=== PATIENT | female | born 2005 | race Two or more races ===

== ENCOUNTER 2025-04-07 14:29 | Emergency (ER) | payer OTHER, SELFPAY ==
[2025-04-07 14:48] VITALS: BP 114/78; PULSE 73; RESP 16; TEMP 36.8; O2SAT 100
--- NOTE | 2025-04-07 14:55 | ED.GENADULT ---
HPI - General Adult General Chief complaint: Headache Stated complaint: headaches/fatigue Time Seen by Provider: 04/07/25 14:31 Source: patient Mode of arrival: ambulatory Limitations: no limitations History of Present Illness HPI narrative: 19-year-old female presents to [facility] with complaints of 2-3 day history of painful skin, headache, lower abdominal cramping, fatigue, body aches and chills. Patient reports that she had an 1 month ago but was feeling well afterwards and Reports that symptoms started 3 days ago. Patient reports that she has been sexually active unprotected since then. Patient is a nonsmoker. Patient denies sick contacts. Patient denies fever, cough, shortness of breath, chest pains, nausea, vomiting or diarrhea. Onset (ago): day(s) (2-3) Relieving factors: none Exacerbating factors: none Associated symptoms: headaches Related Data Home Medications ?Medication ?Instructions ?Recorded ?Confirmed ?Last Taken ?Type No Home Medications 04/07/25 04/07/25 Unknown History Allergies Allergy/AdvReac Type Severity Reaction Status Date / Time No Known Allergies Allergy Verified 04/07/25 14:47 Review of Systems Constitutional: Constitutional: Reports chills, Reports fatigue, Denies fever(s) and Denies weakness ENT: Denies dysphagia, Denies vertigo, Reports dizziness, Denies epistaxis, Denies nasal congestion and Denies sore throat Cardiovascular: Cardiovascular: Denies chest pain Respiratory: Respiratory: Denies cough, Denies dyspnea and Denies wheezing Gastrointestinal: Gastrointestinal: Reports abdominal pain, Denies bloating, Denies diarrhea, Denies nausea and Denies vomiting Genitourinary: Genitourinary: Denies abnormal vaginal bleeding, Denies nocturia, Denies dysuria, Denies urinary incontinence and Denies vaginal discharge Musculoskeletal: Musculoskeletal: Denies back pain Integumentary/Breasts: Skin/Breast: Denies rash Neurologic: Denies confusion, Denies vertigo, Reports dizziness, Denies syncope, Reports headache(s) and Denies focal weakness Allergic/Immunologic: Allergic/Immunologic: Denies lip swelling, Denies throat swelling and Denies tongue swelling PMFSH Comments At time of signature, I agree with nursing past medical, surgical, social and family history. There is no relevant family history pertinent to the presenting complaint. Exam Const: General: healthy appearing and no acute distress Nutritional Appearance: well nourished Orientation/consciousness: patient oriented x3 Limitations: no limitations HENMT: Head: normal to inspection Ears: external ears normal and TM's normal bilaterally Mouth: Yes Normal oral and palatal mucosa present, Yes lip normal and Yes moist mucous membranes Teeth and gingiva: dentition normal Throat: posterior oropharynx normal and uvula midline Eyes: Conjunctivae: conjunctivae normal Neck: Neck: normal visual inspection Resp: Effort & Inspection: normal respiratory effort and not labored Auscultation: clear to auscultation bilaterally, no crackles, no rales, no rhonchi and no wheezes Cardio: Rate: regular rate Rhythm: regular rhythm Heart sounds: no murmurs GI: Inspection: non-distended GI Palp: Yes Soft to palpation, No Tenderness to palpation present (GI), No Guarding due to palpation present (GI) and No Rigid due to palpation : General: Yes bladder normal to palpation and Yes no CVA tenderness Back/Spine/Pelvis: Back: no CVA tenderness Skin: General skin exam: normal color Rashes: no rashes Wounds: no wounds Neuro: General: patient oriented x3 and moves all extremities Speech: normal speech Gait exam (Neuro): Normal gait present Extrem: General: normal to inspection Psych: Affect: normal affect Attitude: cooperative Course Course Level of Care: Express Care Visit Vital Signs Vital signs: Vital Signs Temperature 36.8 C 04/07/25 14:48 Pulse Rate 73 04/07/25 14:48 Respiratory Rate 16 04/07/25 14:48 Blood Pressure 114/78 04/07/25 14:48 Pulse Oximetry 100 04/07/25 14:48 Oxygen Delivery Room Air 04/07/25 14:48 Temperature 36.8 C 04/07/25 14:48 Pulse Rate 73 04/07/25 14:48 Respiratory Rate 16 04/07/25 14:48 Blood Pressure 114/78 04/07/25 14:48 Pulse Oximetry 100 04/07/25 14:48 Oxygen Delivery Room Air 04/07/25 14:48 Transfer Transfered to: [facility] Transfer rationale: abdominal pain, cramping, recent miscarrige 4 weeks ago Accepting physician: Dr South Transfer comments: Transfer form completed and signed. Patient agrees to go directly to [facility] for further evaluation Medical Decision Making MDM Narrative Medical decision making narrative: due to miscarriage 4 weeks ago with no follow-up and current symptoms of abdominal pain, cramping, patient will be transferred to [facility] for further evaluation of labs and imaging. transfer form completed and signed. Called [facility] and report was given to Dr. South. patient does have positive test here. Could likely be from recent miscarriage, but patient does admit to unprotected intercourse since miscarriage Differential Diagnosis Differential Diagnosis: infection post miscarriage, vial illness, bacterial illness Vital Signs Vital Signs: Vital Signs Temperature 36.8 C 04/07/25 14:48 Pulse Rate 73 04/07/25 14:48 Respiratory Rate 16 04/07/25 14:48 Blood Pressure 114/78 04/07/25 14:48 Pulse Oximetry 100 04/07/25 14:48 Oxygen Delivery Room Air 04/07/25 14:48 Temperature 36.8 C 04/07/25 14:48 Pulse Rate 73 04/07/25 14:48 Respiratory Rate 16 04/07/25 14:48 Blood Pressure 114/78 04/07/25 14:48 Pulse Oximetry 100 04/07/25 14:48 Oxygen Delivery Room Air 04/07/25 14:48 Lab Data Labs: Lab Results 04/07/25 04/07/25 Range/Units 15:25 15:29 POC Urine Color Yellow POC Urine Clarity Clear POC Urine pH 6.0 POC Ur Specif [place] 1.030 POC Urine Protein Negative (Negative) POC Ur Glucose (UA) Negative (Negative) POC Urine Ketones Negative (Negative) POC Urine Blood Negative (Negative) POC Urine Nitrite Negative (Negative) POC Urine Bilirubin Negative (Negative) POC Urine Urobilinogen 0.2 POC U Leukocyte Esteras Negative (Negative) POC Urine HCG, Qual Positive (Negative) POC Influenza A Ag Negative (Negative) POC Influenza B Ag Negative (Negative) POC SARS CoV-2 Ag Negative (Negative) POC Grp A Strep Screen Negative (Negative) Critical Care Time Critical Care Time Critical Care Time: No Discharge Plan Discharge Clinical Impression: Abdominal pain Qualifiers: Abdominal location: generalized Qualified Code(s): R10.84 - Generalized abdominal pain Patient Disposition: Acute Care Hospital Condition: Stable Additional Instructions: Proceed to [facility] for further evaluation and higher level of care Patient Language: Spanish Prescriptions: No Action No Home Medications Follow-up/Referrals: Patrizia,Sabina Dixon NP [Primary Care Provider] - Time of Disposition: 15:49
[2025-04-07 15:27] LABS: BEDSIDEPREGUCG Positive (Negative); EDSTREPNEGPOS1 Negative (Negative)
[2025-04-07 15:28] LABS: EDUAAPPEAR Clear; EDUABILI Negative (Negative); EDUABLOOD Negative (Negative); EDUACOLOR1 Yellow; EDUAGLUCOSE Negative (Negative); EDUAKETONE Negative (Negative); EDUALEUKO Negative (Negative); EDUANITRATE Negative (Negative); EDUAPROTEIN Negative (Negative); EDUAUROBILI 0.2
[2025-04-07 15:31] LABS: EDCOVIDSCREEN Negative (Negative); EDINFLUASCREEN Negative (Negative); EDINFLUBSCREEN Negative (Negative)
== END 2025-04-07 15:55 | disposition short-term general hospital (02) ==
PROVIDERS: Emergency Provider Nurse Practitioner Family; PCP Nurse Practitioner
DX: R10.84 Generalized abdominal pain (principal); Z20.822 Contact with and (suspected) exposure to COVID-19
CPT/HCPCS: 81003; 81025; 87426; 87804; 87880; 99213; G0463

== ENCOUNTER 2025-04-08 21:37 | Emergency (ER) | payer OTHER, SELFPAY ==
--- NOTE | ~2025-04-08 | US_ITS ---
Pelvic ultrasound. Clinical History: First trimester , pain, evaluate for ectopic Technique: Realtime transabdominal and transvaginal scanning of the pelvis was performed. Color flow Doppler and Doppler spectral analysis were performed. Findings: The uterus is retroverted.. The endometrial stripe has a thickness of 6 mm. No intrauterin e gestational sac is identified. The right ovary is not visualized. No significant right ovarian or adnexal mass is seen. The left ovary measures 2.9 x 2.2 x 1.9 cm. No significant left ovarian or adnexal mass is seen. There is no evidence of free fluid in the cul de sac. Impression: Positive test without intrauterine gestation. Differential diagnosis includes early normal , spontaneous , or nonvisualized ectopic . Correlate clinically. Continued follow-up with serial beta hCG, and repeat ultrasound as warranted, is advised. Reviewed, dictated and finalized at [facility]. Impression: Positive test without intrauterine gestation. Differential diagnosis includes early normal , spontaneous , or nonvisualized ectopic . Correlate clinically. Continued follow-up with serial beta hCG, and repeat ultrasound as warranted, is advised.
--- OUTSIDE RECORDS SUMMARY | 2025-04-08 21:41 | XMS_ITS | Clinical Summary ---
Author Organization [place] [id number] Address [address] [place] [address] Care Team Providers Care Parachute Rigger Name Role Phone Unknown, Notinfile Primary Care Provider Unavail able Allergies No known active allergies Medications No known medications Encounters Date Type Department Care Team Description 04/07/2025 Patient Self-Triage [facility] HealthCare/ Physicians [address] [place] [id number] Mychart, Generic Provider 04/07/2025 Patient Self-Triage [facility] HealthCare/ Physicians [address] [place] [phone] Mychart, Generic Provider 02/28/2025 6:36 PM CDT - 02/28/2025 8:10 PM CDT Emergency [facility] OB Emergency Department [facility] [place] [address] Crow Espinoza, Threatened in first trimester (Primary Dx); Chlamydia infection affecting in first trimester, antepartum Discharge Disposition: Discharge to home or self care from Last 3 Months Social History Tobacco Use Types Packs/Day Years Used Date Smoking Tobacco: Never Smokeless Tobacco: Never Tobacco Cessation:Counseling Given: Not Answered Social Connection and Isolat ion Panel [NHANES] Answer Date Recorded In a typical week, how many times do you talk on the phone with family, friends, or neighbors? More than three times a week 02/28/2025 How often do you get togethe r with friends or relatives? More than three times a week 02/28/2025 How often do you attend [facility] or jew services? More than 4 times per year 02/28/2025 Do you belong to any clubs o r organizations such as spiritism groups, unions, fraternal or athletic groups, or school groups? Yes 02/28/2025 How often do you attend meet ings of the clubs or organizations you belong to? More than 4 times per year 02/28/2025 Are you , , di vorced, , never , or living with a partner? Never 02/28/2025 AUDIT-C Answer Date Recorded Q1: How often do you have a drink containing alcohol? Never 02/28/2025 Q2: How many drinks containi ng alcohol do you have on a typical day when you are drinking? Patient does not drink Q3: How often do you have si x or more drinks on one occasion? Never 02/28/2025 Overall Financial Resource Strain (CARDIA) Answe r Date Recorded How hard is it for you to pa y for the very basics like food, housing, medical care, and heating? Not hard at all 02/28/2025 PHQ-2 Answer Date Recorded PHQ-2 Total Score (If total score is 3 or more points, staff should administer the PHQ-9) 0 02/28/2025 [facility] of Occupat ional Health - Occupational Stress Questionnaire Answer Date Recorded Do you feel stress - tense, restless, nervous, or anxious, or unable to sleep at night because your mind is troubled all the time - these days? To some extent 02/28/2025 Exercise Vital Sign Answer Date Recorde d On average, how many days pe r week do you engage in moderate to strenuous exercise (like a brisk walk)? 0 days 02/28/2025 On average, how many minutes do you engage in exercise at this level? 0 min 02/28/2025 Hunger Vital Sign Answer Date Recorded Within the past 12 months, y ou worried that your food would run out before you got the money to buy more. Never true 02/29/20 25 Within the past 12 months, t he food you bought just didn't last and you didn't have money to get more. Never true 02/28/2025 PRAPARE - Transportation Answer Date Re corded In the past 12 months, has l ack of transportation kept you from medical appointments or from getting medications? No 04/2 01/2025 In the past 12 months, has l ack of transportation kept you from meetings, work, or from getting things needed for daily living? No 02/28/2025 PHQ-9 Answer Date Recorded PHQ-9 Total Score 0 02/28/2025 Housing Stability Vital Sign Answer Ricki e Recorded In the last 12 months, was t here a time when you were not able to pay the mortgage or rent on time? No 02/28/2025 Number of Times Moved in the Last Year Not on fi le 02/28/2025 At any time in the past 12 m [facility], were you homeless or living in a long term (including now)? No 02/28/2025 Personal Safety Answer Date Recorded Have you ever been in or are you currently in a harmful physical or emotional relationship or is someone making you feel afraid or unsafe? 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 Gender Identity Not on file Sexual Orientation Not on file Obstetrics History Para Term AB IAB SAB Ectopic Multiple Livin g Live Births 1 Date Outcome GA Total Labor Labor/2nd/3rd Weight Sex Type Anes PTL Debo A1 A5 Name Clin Current Summary Episode Dates Number of Fetuses Estimated Date of Delivery 02/28/2025 - Present (04/08/2025) 10/29/2025 (set by Della Queen, ROBIN on 02/28/2025 based on Last Menstrual Period on 01/22/2025 (Approximate)) Dating Summary Based On JOSE CARLOS GA Diff Last Menstrual Period on 01/22/2025 (Approximate ) 10/29/2025 Working Vitals Date GA Fund Present FHR Mvmt BP Weight Edema Alb Glu Ket Dil/ Eff/Sta 5w2d Inpatient data not displayed here. See encounter summary. Last Filed Vital Signs Vital Sign Reading Time Taken Comments Blood Pressure 142/80 02/28/2025 6:07 PM CDT Pulse 116 02/28/2025 6:07 PM CDT Temperature 36.7 C (98.1 F) 02/28/2025 6:07 PM CDT Respiratory Rate 17 02/28/2025 6:07 PM CDT Oxygen Saturation 98% 02/28/2025 6:07 PM CDT Inhaled Oxygen Concentration - - Weight 58.6 kg (129 lb 3 oz) 02/28/2025 6:07 PM CDT Height 157.5 cm (5' 2) 03/05/2019 10:33 PM CDT Body Mass Index - - Plan of Treatment Health Maintenance Due Date Last Done Comments Hepatitis C Screening 2004 Meningococcal B Vaccine (1 o f 2 - Standard) 2020 Regular Well Visit/Exam 18-64 2022 Covid-19 Vaccine (3 - 2023-2 5 season) 2024 11/11/2021, 09/04/2021 Influenza Vaccine (Season Ended) 2025 09/01/20 05 Depression Screening 02/28/2026 02/28/2025, 02/29/20 25 DTaP/Tdap/Td Vaccine (7 - Td or Tdap) 05/20/2027 05/20/2017, 06/13/2009, 04/16/2006, Additional history exists Hepatitis B Screening Completed 04/16/2006 , 03/31/2005, 2004, Additional history exists Pneumococcal vaccine <65 Completed 009, 04/16/2006, 03/31/2005, Additional history exists Varicella Vaccines Completed 12/27/2008, 09/01/2005 HPV Vaccines Completed 07/24/2019, 05/20/2017 Meningococcal Vaccine Completed 07/22/2022, 017 Procedures Procedure Name Priority Date/Time Associated Diagnosis Comments ANTIBODY SCREEN Timed 02/28/2025 7:26 PM CDT ABO/RH Timed 02/28/2025 7:26 PM CDT TYPE AND SCREEN Timed 02/28/2025 7:26 PM CDT VAGINITIS PANEL STAT 02/28/2025 7:26 PM CDT N. GONORRHOEAE/C. TRACHOMATIS AMPLIFICATION STAT 02/28/2025 7:26 PM CDT POCT HCG, URINE Routine 02/28/2025 6:24 PM CDT EGFR STAT 02/28/2025 6:22 PM CDT HCG, BLOOD, QUANTITATIVE STAT 02/28/2025 6:22 PM CDT COMPREHENSIVE METABOLIC PANEL STAT 02/28/2025 6:22 PM CDT DIFFERENTIAL AUTO STAT 02/28/2025 6:1 3 PM CDT CBC WITH AUTO DIFFERENTIAL STAT 02/28/2025 6:13 PM CDT from Last 3 Months Results * (ABNORMAL) N. gonorrhoeae/C. trachomatis Amplification Endocervical (02/28/2025 7:26 PM CDT) [facility] C. trachomatis Detected(A) Not Detected Comment:Testing performed by : [facility], [address] [place] [address]., [id number] N. gonorrhoeae Not Detected Not Detected ANYA ULRICH Comment: Interpretive Data This assay detects Chlamydia trachomatis and Neisseria gonorrhoeae by nucleic acid amplification testing (NAAT). This assay has been cleared by the [place] Food and Drug administration. The performance characteristics of this test have been verified by the [facility]. The performance characteristics of this test have not been evaluated in individuals less than 14 years of age. Current Interpretive Data last revised 2023. Testing performed by: [facility], [address] [place] [address]., [id number] Endocervical (None) 02/29/20 7:26 PM CDT 02/28/2025 7:38 PM CDT us Jimmy Mason MD LAB MICROBIOLOGY - GENERAL ORDERABLES Final Result ANYA [address] [facility] Department [place] [address] * (ABNORMAL) Vaginitis panel Vaginal (02/28/2025 7:26 PM CDT) Bacterial Vaginosis Detected(A) Not Detected Comment: The BV organism targets of this test can be commensal in women; results should be considered in conjunction with clinical presentation to determine the disease status. Testing performed by: [address] [address] Wen group Not Detected Not Detected ANYA Comment:Testing performed by : [address] [address] Wen glabrata/ krusei Not Detected Not Detected ANYA Comment:Testing performed by : [address] [address] Trichomonas DNA Not Detected Not Detected [facility] Comment:Testing performed by : [address] [address] Vaginal 02/28/2025 7:26 PM CDT 02/28/2025 9:45 PM CDT Narrative ANYA - 02/28/2025 10:45 PM CDT The [employer] Xpert Xpress MVP test detects DNA targets from anaerobic bacteria associated with bacterial vaginosis, Wen species associated with vulvovaginal candidiasis, and Trichomonas vaginalis by nucleic acid amplification testing (NAAT). Results should be interpreted in conjunction with other clinical data. This test cannot be used to assess therapeutic success or failure because target nucleic acids may persist following antimicrobial therapy. This test has been cleared by the [place] Food and Drug Administration to aid in the diagnosis of vaginal infections in symptomatic women ages 14 and older. The performance characteristics of this test have been verified by the [facility]. us Jimmy Mason MD LAB MICROBIOLOGY - GENERAL ORDERABLES Final Result [facility] [address] [facility] Department [place] [address] * ABO/Rh (02/28/2025 7:26 PM CDT) ABO/Rh O Positive Comment:Testing performed by : [address] [address] Blood 02/28/2025 7:26 PM CDT 02/28/2025 7:38 PM CDT Narrative [facility] 02/28/2025 8:13 PM CDT Has the patient had Daratumumab or Isatuximab in the past 6 months?->Unknown Jimmy Mason MD LAB BLOOD BANK TEST ORDERAB LES Final Result Performing Organization Address City/[facility]/ZIP Co de Phone Number [address] [place] [address] * Antibody screen (02/28/2025 7:26 PM CDT) [facility] Beatris, indirect, Gel Interpretation Negative ABSC Comment:Testing performed by : [facility], [address] [place] [address]., [address] Blood 02/28/2025 7:26 PM CDT 02/28/2025 7:38 PM CDT Narrative [facility] 02/28/2025 8:13 PM CDT Has the patient had Daratumumab or Isatuximab in the past 6 months?->Unknown Result [facility] Jimmy Mason MD LAB BLOOD BANK TEST ORDERAB LES Final Result Performing Organization Address [facility] Co de Phone Number [address] [place] [address] * (ABNORMAL) POCT hCG, urine (02/28/2025 6:24 PM CDT) [facility] HCG, ur, POC Positive(A) Negative Lot Number [id number] QC Backgroud Clear Acceptable QC Control Line Acceptable Urine 02/28/2025 6:24 PM CDT Dari LUCIANO POINT OF CARE TEST ORD ERABLES Final Result * eGFR (02/28/2025 6:22 PM CDT) [facility] eGFR >90 >=60 mL/min/1. 73 m2 Comment: Interpretive Data Reference Interval Normal >/= 90 mL/min/1.73m2 Mildly decreased* 60 - 89 mL/min/1.73m2 Mildly to moderately decreased 45 - 59 mL/min/1.73m2 Moderately to severely decreased 30 - 44 mL/min/1.73m2 Severely decreased 15 - 29 mL/min/1.73m2 Kidney Failure < 15 mL/min/1.73m2 *Relative to young adult level Estimated glomerular filtration rate is determined by the 2020 CKD-EPI equation recommended by the National Kidney Foundation (A Unifying Approach to GFR Estimation: Recommendations of the NKF-ASK Task Force on Reassessing the Inclusion of Race in Diagnosing Kidney Disease, JASN 2020). The CKD-EPI equation should not be used for patients with unstable renal function and has not been validated in children and those over 70. Current interpretive data was last reviewed 2021. Testing performed by: [address] [address] Blood 02/28/2025 6:22 PM CDT 02/28/2025 6:30 PM CDT us Rod Trejo MD LAB BLOOD ORDERABLES Fi nal Result [facility] [address] [facility] Department [place] [address] * (ABNORMAL) hCG, blood, quantitative (02/28/2025 6:22 PM CDT) hCG, quant 352.1(H) 0.0 - 5.0 IUnits/L Comment: Interpretive Data Male: < 5 IU/L Non- premenopausal Female: <5 IU/L The Sil hCG Beta Quant assay procedure was used. Results from different manufacturers or methods may not be comparable. Serial testing should be performed using the same method. Interpretive Data was last revised on 2023 Testing performed by: [address] [address] Blood 02/28/2025 6:22 PM CDT 02/28/2025 6:30 PM CDT Crow Oscar Schifano DO LAB BLOOD ORDERABLES Ed ited Result - Final ANY[facility] [address] [facility] Department [place] [address] * (ABNORMAL) Comprehensive metabolic panel (02/28/2025 6:22 PM CDT) Sodium 137 135 - 145 mmol/L Comment:Testing performed by : [address] [address] Potassium, pl 3.7 3.3 - 4.9 mmol/L ANYA Comment:Testing performed by : [address], [place]., [address] Chloride 103 97 - 110 mmol/L ANYA Comment:Testing performed by : [address], [place]., [address] CO2 25 22 - 32 mmol/L ANYA Comment:Testing performed by : [address] [address] Anion gap 9 2 - 15 mmol/L ANYA Comment:Testing performed by : [address] [address] BUN 15 6 - 25 mg/dL ANYA Comment:Testing performed by : [address] [address] Creatinine 0.50(L) 0.60 - 1.10 mg/dL ANYA Comment:Testing performed by : [address] [address] Glucose 88 70 - 199 mg/dL ANYA Comment: Interpretive Data Fasting glucose >/= 126 mg/dl is diagnostic for diabetes. Fasting is defined as no caloric intake for at least 8 hours. Fasting glucose between 100 mg/dl to 125 mg/dl is diagnostic of prediabetes. In a patient with classic symptoms of hyperglycemia or hyperglycemic crisis, a random glucose >/= 200 mg/dl is diagnostic for diabetes. In the absence of unequivocal hyperglycemia, results should be confirmed by repeat testing. The classification and Diagnosis of Diabetes Diabetes Care 2021; 46: S19-S40. Current interpretive data was last revised 2022. Testing performed by: [address] [address] Calcium 9.1 8.5 - 10.3 mg/dL ANYA Comment:Testing performed by : [address] [address] Bilirubin, total 0.3 0.1 - 1.2 mg/dL ANYA Comment:Testing performed by : [address], [place]., [address] Protein, pl 7.4 6.5 - 8.5 g/dL ANYA Comment:Testing performed by : [address], [place]., [address] Albumin 4.5 3.5 - 5.0 g/dL ANYA Comment:Testing performed by : [address] [address] Alk phos 62 40 - 130 Units/L ANYA Comment:Testing performed by : [address] [address] ALT 9 7 - 45 Units/L ANYA Comment:Testing performed by : [address] [address] AST 15 10 - 45 Units/L ANYA Comment:Testing performed by : [address] [address] Blood 02/28/2025 6:22 PM CDT 02/28/2025 6:30 PM CDT us Rod Trejo MD LAB BLOOD ORDERABLES nal Result ANY[facility] [address] [facility] Department [place] [address] * (ABNORMAL) Differential, auto (02/28/2025 6:13 PM CDT) Neutrophil abs 6.84(H) 1.50 - 6.50 K/cumm Comment:Testing performed by : [address] [address] Imm gran abs 0.02 0.00 - 0.10 K/cumm ANYA Comment:Testing performed by : [address] [address] Lymphocyte abs 1.99 0.80 - 3.30 K/cumm C[facility] Comment:Testing performed by : [address] [address] Monocyte abs 0.71 0.20 - 0.80 K/cumm [facility] Comment:Testing performed by : [address], [place]., [address] Eosinophil abs 0.17 0.00 - 0.50 K/cumm [facility] Comment:Testing performed by : [address], [place]., [address] Basophil abs 0.06 0.00 - 0.10 K/cumm [facility] Comment:Testing performed by : [address] [address] Neutrophil pct 69.9 % [facility] Comment: Interpretive Data Percent cell count reference ranges are not reported, since discordance with absolute values may lead to misinterpretation of CBC data. Current Interpretive Data was last revised on 2018. Testing performed by: [address] [address] Imm gran pct 0.2 % [facility] Comment: Interpretive Data Percent cell count reference ranges are not reported, since discordance with absolute values may lead to misinterpretation of CBC data. Current Interpretive Data was last revised on 2018. Testing performed by: [address] [address] Lymphocyte pct 20.3 % [facility] Comment: Interpretive Data Percent cell count reference ranges are not reported, since discordance with absolute values may lead to misinterpretation of CBC data. Current Interpretive Data was last revised on 2018. Testing performed by: [address] [address] Monocyte pct 7.3 % [facility] Comment: Interpretive Data Percent cell count reference ranges are not reported, since discordance with absolute values may lead to misinterpretation of CBC data. Current Interpretive Data was last revised on 2018. Testing performed by: [address] [address] Eosinophil pct 1.7 % [facility] Comment: Interpretive Data Percent cell count reference ranges are not reported, since discordance with absolute values may lead to misinterpretation of CBC data. Current Interpretive Data was last revised on 2018. Testing performed by: [address] [address] Basophil pct 0.6 % ANY[facility] ULRICH Comment: Interpretive Data Percent cell count reference ranges are not reported, since discordance with absolute values may lead to misinterpretation of CBC data. Current Interpretive Data was last revised on 2018. Testing performed by: [address] [address] Blood 02/28/2025 6:13 PM CDT 02/28/2025 6:30 PM CDT us Dari LUCIANO LAB BLOOD ORDERABLES F inal Result ANYA [facility] Department [place] [address] * (ABNORMAL) CBC with auto differential (02/28/2025 6:13 PM CDT) WBC 9.79 3.80 - 9.90 K/cumm Comment:Testing performed by : [address] [address] Hgb 12.1 11.9 - 15.5 g/dL [facility]ICH Comment:Testing performed by : [address] [address] Hct 35.1(L) 35.6 - 45.5 % [facility] Comment:Testing performed by : [address] [address] Plt 249 150 - 400 K/cumm [facility] Comment:Testing performed by : [address] [address] MPV 11.0 9.1 - 12.3 fL [facility] Comment:Testing performed by : [address] [address] RBC 3.95 3.90 - 5.20 M/cumm [facility] Comment:Testing performed by : [address] [address] MCV 88.9 81.3 - 96.4 fL [facility] Comment:Testing performed by : [address] [address] MCH 30.6 27.1 - 33.3 pg [facility] ULRICH Comment:Testing performed by : [address] [address] MCHC 34.5 32.3 - 35.7 g/dL [facility] Comment:Testing performed by : [address] [address] RDW CV 11.6 11.1 - 14.9 % [facility] Comment:Testing performed by : [address] [address] RDW SD 37.4 35.7 - 48.1 fL [facility] Comment:Testing performed by : [address] [address] NRBC abs 0.00 0.00 - 0.01 K/cumm ANYA Comment:Testing performed by : [address] [address] Blood Venous blood specimen / Unknown 02/28/2025 6:13 PM CDT 02/28/2025 6:30 PM CDT Dari LUCIANO LAB BLOOD ORDERABLES F inal Result Performing Organization Address City/State/[facility] Co de Phone Number [facility] [address] [facility] Department [place] [address] from Last 3 Months Insurance Care Teams Parachute Rigger Relationship Specialty Start Date End Date Unknown, Notinfile PCP - General 02/28/25
--- OUTSIDE RECORDS SUMMARY | 2025-04-08 21:41 | XMS_ITS | Encounter Summary ---
Author Organization [facility] Healthcare Address [address] [place] [address] Care Team Providers Care Bingo Caller Name Role Phone Unknown, Notinfile Primary Care Provider Unavail able Encounter Details Date Type Department Care Team ([facility] st Contact Info) Description 04/07/2025 Patient Self-Triage [facility] [address] [place] [address] Romie, Generic Provider [address] [place], [place] [id number] Social History Tobacco Use Types Packs/Day Years Used Date Smoking Tobacco: Never Smokeless Tobacco: Never Social Connection and Isolat ion Panel [NHANES] Answer Date Recorded In a typical week, how many times do you talk on the phone with family, friends, or neighbors? More than three times a week 02/28/2025 How often do you get togethe r with friends or relatives? More than three times a week 02/28/2025 How often do you attend chur or spiritism services? More than 4 times per year 02/28/2025 Do you belong to any clubs o r organizations such as cheondoism groups, unions, fraternal or athletic groups, or [...] staff should administer the PHQ-9) 0 02/28/2025 [facility] of Occupat ional Health - Occupational Stress [...] medical appointments or from getting medications? No 02/07 In the past 12 months, has l [...] any time in the past 12 m [facility], were you homeless or living in a senior living (including now)? 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
--- OUTSIDE RECORDS SUMMARY | 2025-04-08 21:41 | XMS_ITS | Encounter Summary ---
Author Organization [facility] Healthcare Address [address] [place] [address] Care Team Providers Care Dry Kiln Worker Name Role Phone Unknown, Notinfile Primary Care Provider Unavail able Encounter Details Date Type Department Care Team ([facility] st Contact Info) Description 04/07/2025 Patient Self-Triage [facility] [address] [place] [address] Romie, Generic Provider [address] [place], [place] [id number] Social History Tobacco Use Types Packs/Day Years [...] How often do you attend chur or anabaptist services? More than 4 times per year 02/28/2025 Do you belong to any clubs o r organizations such as restorationist groups, unions, fraternal or athletic groups, or [...] staff should administer the PHQ-9) 0 02/28/2025 [facility] of Occupat ional Health - Occupational [...] any time in the past 12 m [facility], were you homeless or living in a custodial (including now)? 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
--- OUTSIDE RECORDS SUMMARY | 2025-04-08 21:41 | XMS_ITS | Referral Summary ---
Author Organization [place] [id number] Address [address] [place] [address] Care Team Providers Care Utilities Equipment Repairer Name Role Phone Unknown, Notinfile Primary Care Provider Unavail able Encounters Date Type Department Care Team Description 04/07/2025 Patient Self-Triage [facility] HealthCare/ Physicians [address] [place] [id number] Mychart, Generic Provider 04/07/2025 Patient Self-Triage [facility]/ Physicians [address] [place] [address] Mychart, Generic Provider 02/28/2025 6:36 PM CDT - 02/28/2025 8:10 PM CDT Emergency [facility] OB Emergency Department [address] [place] [address] Crow Espinoza DO Threatened in first trimester (Primary Dx); Chlamydia infection affecting in first trimester, antepartum Discharge Disposition: Discharge to home or self care from Last 3 Months Allergies No known active allergies Medications No known medications Social History Tobacco Use Types Packs/Day Years [...] week 02/28/2025 [facility] often do you attend [facility] or [facility] services? 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 trachomatis Detected(A) Not Detected Comment:Testing performed by : [facility], [address] [place] [address]., [id number] N. gonorrhoeae Not Detected Not Detected ANYA ULRICH Comment: Interpretive Data This assay detects Chlamydia trachomatis and Neisseria gonorrhoeae by nucleic acid amplification testing (NAAT). This assay has been cleared by the [place] Food and Drug administration. The performance characteristics of this test have been verified by the [facility]. The performance characteristics of this test have not been evaluated in individuals less than 14 years of age. Current Interpretive Data last revised 2023. Testing performed by: [facility], [address] [place] [address]., [id number] Endocervical (None) 02/29/20 7:26 PM CDT 02/28/2025 7:38 PM CDT Jimmy Mason MD LAB MICROBIOLOGY - GENERAL ORDERABLES Final Result Performing Organization Address City/State/[facility] Co de Phone Number ANYA [address] [facility] [employer] [place] [address] * (ABNORMAL) Vaginitis panel Vaginal (02/28/2025 7:26 PM CDT) Bacterial Vaginosis Detected(A) Not Detected Comment: The BV organism targets of this test can be commensal in women; results should be considered in conjunction with clinical presentation to determine the disease status. Testing performed by: [address] [address] Wen group Not Detected Not Detected [facility] Comment:Testing performed by : [address] [address] Wen glabrata/ krusei Not Detected Not Detected [facility] Comment:Testing performed by : [address], [place]., [address] Trichomonas DNA Not Detected Not Detected [facility] Comment:Testing performed by : [address] [address] Vaginal 02/28/2025 7:26 PM CDT 02/28/2025 9:45 PM CDT Narrative [facility] - 02/28/2025 10:45 PM CDT The [email or web address] Xpert Xpress MVP test detects DNA targets [...] this test have been verified by the [facility]. us Jimmy Mason MD LAB MICROBIOLOGY - GENERAL ORDERABLES Final Result Performing Organization Address City/[facility]/ZIP Co de Phone Number ANYA [address] [facility] [place] [address] * ABO/Rh (02/28/2025 7:26 PM CDT) ABO/Rh O Positive Comment:Testing performed by : [address] [address] Blood 02/28/2025 7:26 PM CDT 02/28/2025 7:38 PM CDT Narrative [facility] 02/28/2025 8:13 PM CDT Has the patient had Daratumumab or Isatuximab in the past 6 months?->Unknown Jimmy Mason MD LAB BLOOD BANK TEST ORDERAB LES Final Result Performing Organization Address [facility] Co de Phone Number [address] [place] [address] * Antibody screen (02/28/2025 7:26 PM CDT) Pathologist [facility] Beatris, indirect, Gel Interpretation Negative ABSC Comment:Testing performed by : [address] [address] Blood 02/28/2025 7:26 PM CDT 02/28/2025 7:38 PM CDT Narrative [facility] 02/28/2025 8:13 PM CDT Has the patient had Daratumumab or Isatuximab in the past 6 months?->Unknown Jimmy Mason MD LAB BLOOD BANK TEST ORDERAB LES Final Result Performing Organization Address [facility] Co de Phone Number [address] [place] [address] * (ABNORMAL) POCT hCG, urine (02/28/2025 6:24 PM CDT) Pathologist [facility] HCG, ur, POC Positive(A) Negative Lot Number [id number] QC Backgroud Clear Acceptable QC Control Line Acceptable Urine 02/28/2025 6:24 PM CDT Dari LUCIANO POINT OF CARE TEST ORD ERABLES Final Result * eGFR (02/28/2025 6:22 PM CDT) eGFR >90 >=60 mL/min/1. 73 m2 Comment: [...] was last reviewed 2021. Testing performed by: [facility], [address] [place] [address]., [address] Blood 02/28/2025 6:22 PM CDT 02/28/2025 6:30 PM CDT us Rod Trejo MD LAB BLOOD ORDERABLES Fi nal Result [facility] [address] [facility] Department [place] [address] * (ABNORMAL) hCG, blood, quantitative [...] last revised on 2023 Testing performed by: [address] [address] Blood 02/28/2025 6:22 PM CDT 02/28/2025 6:30 PM CDT us Crow Espinoza DO LAB BLOOD ORDERABLES Ed ited Result - Final [facility] [address] [facility] Department [place] [address] * (ABNORMAL) Comprehensive metabolic panel (02/28/2025 6:22 PM CDT) Sodium 137 135 - 145 mmol/L Comment:Testing performed by : [address] [address] Potassium, pl 3.7 3.3 - 4.9 mmol/L ANYA Comment:Testing performed by : [address] [address] Chloride 103 97 - 110 mmol/L ANYA Comment:Testing performed by : [address] [address] CO2 25 22 - 32 mmol/L ANYA Comment:Testing performed by : [address] [address] Anion gap 9 2 - 15 mmol/L ANYA Comment:Testing performed by : [address] [address] BUN 15 6 - 25 mg/dL ANYA Comment:Testing performed by : [address] [address] Creatinine 0.50(L) 0.60 - 1.10 mg/dL ANYA Comment:Testing performed by : [address] [address] Glucose 88 70 - 199 mg/dL ANYA [...] classification and Diagnosis of Diabetes Diabetes Care 202; 46: S19-S40. Current interpretive data was last revised 2022. Testing performed by: [facility], [address] [place] [address]., [address] Calcium 9.1 8.5 - 10.3 mg/dL ANYA Comment:Testing performed by : [address] [address] Bilirubin, total 0.3 0.1 - 1.2 mg/dL ANYA Comment:Testing performed by : [address] [address] Protein, pl 7.4 6.5 - 8.5 g/dL ANYA Comment:Testing performed by : [address] [address] Albumin 4.5 3.5 - 5.0 g/dL ANYA Comment:Testing performed by : [address] [address] Alk phos 62 40 - 130 Units/L ANYA Comment:Testing performed by : [address] [address] ALT 9 7 - 45 Units/L ANYA Comment:Testing performed by : [address] [address] AST 15 10 - 45 Units/L [facility] Comment:Testing performed by : [address] [address] Blood 02/28/2025 6:22 PM CDT 02/28/2025 6:30 PM CDT us Rod Trejo MD LAB BLOOD ORDERABLES Fi nal Result ANYA [address] [facility] Department [place] [address] * (ABNORMAL) Differential, auto (02/28/2025 6:13 PM CDT) Neutrophil abs 6.84(H) 1.50 - 6.50 K/cumm Comment:Testing performed by : [address], [place]., [address] Imm gran abs 0.02 0.00 - 0.10 K/cumm [facility] Comment:Testing performed by : [address], [place]., [address] Lymphocyte abs 1.99 0.80 - 3.30 K/cumm [facility] Comment:Testing performed by : [address], [place]., [address] Monocyte abs 0.71 0.20 - 0.80 K/cumm [facility] Comment:Testing performed by : [address], [place]., [address] Eosinophil abs 0.17 0.00 - 0.50 K/cumm [facility] Comment:Testing performed by : [address], [place]., [address] Basophil abs 0.06 0.00 - 0.10 K/cumm [facility] Comment:Testing performed by : [address] [address] Neutrophil pct 69.9 % [facility] Comment: Interpretive Data Percent cell count reference ranges are not reported, since discordance with absolute values may lead to misinterpretation of CBC data. Current Interpretive Data was last revised on 2018. Testing performed by: [address] [address] Imm gran pct 0.2 % [facility] Comment: Interpretive Data Percent cell count reference ranges are not reported, since discordance with absolute values may lead to misinterpretation of CBC data. Current Interpretive Data was last revised on 2018. Testing performed by: [address] [address] Lymphocyte pct 20.3 % [facility] Comment: Interpretive Data Percent cell count reference ranges are not reported, since discordance with absolute values may lead to misinterpretation of CBC data. Current Interpretive Data was last revised on 2018. Testing performed by: [address] [address] Monocyte pct 7.3 % [facility] Comment: Interpretive Data Percent cell count reference ranges are not reported, since discordance with absolute values may lead to misinterpretation of CBC data. Current Interpretive Data was last revised on 2018. Testing performed by: [address] [address] Eosinophil pct 1.7 % ANYA Comment: Interpretive Data Percent cell count reference ranges are not reported, since discordance with absolute values may lead to misinterpretation of CBC data. Current Interpretive Data was last revised on 2018. Testing performed by: [address] [address] Basophil pct 0.6 % ANYA Comment: Interpretive Data Percent cell count reference ranges are not reported, since discordance with absolute values may lead to misinterpretation of CBC data. Current Interpretive Data was last revised on 2018. Testing performed by: [address] [address] Blood 02/28/2025 6:13 PM CDT 02/28/2025 6:30 PM CDT us Dari LUCIANO LAB BLOOD ORDERABLES F inal Result [facility] [address] [facility] Department [place] [address] * (ABNORMAL) CBC with auto differential (02/28/2025 6:13 PM CDT) Pathologist [facility] WBC 9.79 3.80 - 9.90 K/cumm Comment:Testing performed by : [address] [address] Hgb 12.1 11.9 - 15.5 g/dL ANYA Comment:Testing performed by : [address] [address] Hct 35.1(L) 35.6 - 45.5 % ANYA Comment:Testing performed by : [address] [address] Plt 249 150 - 400 K/cumm ANYA Comment:Testing performed by : [address] [address] MPV 11.0 9.1 - 12.3 fL ANYA ULRICH Comment:Testing performed by : [address] [address] RBC 3.95 3.90 - 5.20 M/cumm ANYA ULRICH Comment:Testing performed by : [address] [address] MCV 88.9 81.3 - 96.4 fL ANYA Comment:Testing performed by : [address] [address] MCH 30.6 27.1 - 33.3 pg ANYA Comment:Testing performed by : [address] [address] MCHC 34.5 32.3 - 35.7 g/dL ANYA Comment:Testing performed by : [address] [address] RDW CV 11.6 11.1 - 14.9 % ANYA Comment:Testing performed by : [address] [address] RDW SD 37.4 35.7 - 48.1 fL ANYA Comment:Testing performed by : [address] [address] NRBC abs 0.00 0.00 - 0.01 K/cumm ANYA Comment:Testing performed by : [address] [address] Blood Venous blood specimen / Unknown 02/28/2025 6:13 PM CDT 02/28/2025 6:30 PM CDT us Dari LUCIANO LAB BLOOD ORDERABLES F inal Result [facility] [address] [facility] Department [place] [address] from Last 3 Months Insurance [facility] Care Teams Utilities Equipment Repairer Relationship Specialty Start Date End Date Unknown, Notinfile PCP - General 02/28/25
[2025-04-08 22:00] VITALS: BP 115/78; PULSE 94; RESP 16; TEMP 36.4; O2SAT 99
[2025-04-09 00:14] VITALS: PULSE 77; RESP 16; O2SAT 98
[2025-04-09 00:16] VITALS: BP 123/72
[2025-04-09 00:32] LABS: BEDSIDEPREGUCG Negative (Negative)
[2025-04-09 00:39] LABS: Basophils Absolute Auto 0.1 K/mm3 (0.0-0.1); Basophils Percent Auto 0.8 % (0.2-1.2); Eosinophils Absolute Auto 0.4 K/mm3 (0-0.3); Eosinophils Percent Auto 4.7 % (0-4.4); Hemoglobin 12.5 g/dL (12.0-15.0); Immature Granulocyte Absolute 0.02 K/mm3 (0.00-0.031); Immature Granulocyte Percent A 0.2 % (0-0.5); Lymphocytes Percent Auto 28.1 % (18.3-44.2); Mean Corpuscular HGB Conc 33.8 g/dl (32-36); Mean Corpuscular Hemoglobin 30.2 pg (26-34); Mean Corpuscular Volume 89.4 fl (80-100); Mean Platelet Volume 10.8 fl (7.4-10.4); Monocytes Absolute Auto 0.7 K/mm3 (0.1-0.6); Monocytes Percent Auto 7.6 % (2.6-8.5); Neutrophils Absolute Auto 5.2 K/mm3 (1.3-6.7); Neutrophils Percent Auto 58.6 % (45.5-73.1); Platelet Count Result 255 k/mm3 (150-375); Red Blood Count 4.14 M/mm3 (4.2-5.4); Red Cell Distribution Width 11.8 % (11.5-14.5); White Blood Count 8.9 K/mm3 (4.5-10.0)
[2025-04-09 00:46] LABS: Add Urine Microscopic? YES; Appearance Urine Clear (Clear); Bacteria Urine 1+ /hpf; Bilirubin Urine Negative (Negative); Blood Urine Negative (Negative); Color Urine Yellow (Yellow); Glucose Urine UA Negative (Negative); Ketones Urine Trace mg/dL (Negative); Leukocyte Esterase Ur Negative LEU/UL (Negative); Nitrate Urine Negative (Negative); Non Pathogenic Casts 0-2; Protein Urine Trace mg/dL (Negative); RBC Urine 0-2 /hpf (0-2); Specific Grav Ur 1.031 (1.001-1.035); Squamous Epithelial Cell Urine Few /hpf (Few); WBC Urine 0-5 /hpf (0-3); pH Urine 8.5 (5.0-9.0)
[2025-04-09 00:55] LABS: Alanine Aminotransferase 21 U/L (6-35); Albumin Level 4.9 g/dL (3.5-5.1); Alkaline Phosphatase 75 U/L (38-126); Anion Gap 10 mmol/L (4-12); Aspartate Amino Transferase 28 U/L (14-36); Bilirubin,Total 0.3 mg/dL (0.2-1.3); Blood Urea Nitrogen 19 mg/dL (7-17); Calcium 9.6 mg/dL (8.4-10.2); Carbon Dioxide 25 mmol/L (22-30); Chloride 104 mmol/L (98-107); Estimated CRCL calculation 84 ml/min; Estimated Glomerular Filt Rate > 60; Glucose 69 mg/dL (65-110); Lipase 113 U/L (23-300); Potassium 3.6 mmol/L (3.4-5.0); Sodium 139 mmol/L (137-145)
[2025-04-09 00:57] LABS: Partial Thromboplastin Time 30.1 Seconds (22.3-36.8); Prothrombin Time 13.1 Seconds (11.1-14.7)
--- OUTSIDE RECORDS SUMMARY | 2025-04-09 01:43 | XMS_ITS | Referral Summary ---
Author Organization [facility] [address] [facility] Address [address] [place] [address] Care Team Providers Care Printer Apprentice Name Role Phone Unknown, Notinfile Primary Care Provider Unavail able Encounters Date Type Department Care Team Description 04/07/2025 Patient Self-Triage [facility] HealthCare/ Physicians [address] [place] [id number] Mychart, Generic Provider 04/07/2025 Patient Self-Triage [facility] HealthCare/ Physicians [address] [place] [address] Mychart, Generic Provider 02/28/2025 6:36 PM CDT - 02/28/2025 8:10 PM CDT Emergency [facility] OB Emergency Department [address] [place] [address] Crow Espinoza DO Threatened in first trimester [...] week 02/28/2025 How often do you attend [facility] or latter-day services? More than 4 times per year 02/28/2025 Do you belong to any clubs o r organizations such as hoahaoism groups, unions, fraternal or athletic groups, or [...] staff should administer the PHQ-9) 0 02/28/2025 [facility] - Occupational Stress [...] any time in the past 12 m [facility], were you homeless or living in a jail (including now)? 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 gonorrhoeae Not Detected Not Detected ANYA ULRICH Comment: Interpretive Data This assay detects Chlamydia trachomatis and Neisseria gonorrhoeae by nucleic acid amplification testing (NAAT). This assay has been cleared by the [place] Food and Drug administration. The performance characteristics of this test have been verified by the [facility]. The performance characteristics of this test have not been evaluated in individuals less than 14 years of age. Current Interpretive Data last revised 2023. Testing performed by: [facility], [address] [place] [address]., [id number] Endocervical (None) 02/29/20 7:26 PM CDT 02/28/2025 7:38 PM CDT Jimmy Mason MD LAB MICROBIOLOGY - GENERAL ORDERABLES Final Result Performing Organization Address City/State/[facility] Co de Phone Number ANYA [address] [facility] [employer] [place] [address] * (ABNORMAL) Vaginitis panel Vaginal (02/28/2025 7:26 PM CDT) Bacterial Vaginosis Detected(A) Not Detected Comment: The BV organism targets of this test can be commensal in women; results should be considered in conjunction with clinical presentation to determine the disease status. Testing performed by: [address] [address] Wen group Not Detected Not Detected [facility] Comment:Testing performed by : [address] [address] Wen glabrata/ krusei Not Detected Not Detected [facility] Comment:Testing performed by : [address], [place]., [address] Trichomonas DNA Not Detected Not Detected [facility] Comment:Testing performed by : [address] [address] Vaginal 02/28/2025 7:26 PM CDT 02/28/2025 9:45 PM CDT Narrative [facility] - 02/28/2025 10:45 PM CDT The CepMetaModixid Xpert Xpress MVP test detects DNA targets [...] this test have been verified by the [facility]. us Jimmy Mason MD LAB MICROBIOLOGY - GENERAL ORDERABLES Final Result Performing Organization Address City/[facility]/ZIP Co de Phone Number ANYA [address] [facility] [place] [place] [address] * ABO/Rh (02/28/2025 7:26 PM CDT) ABO/Rh O Positive Comment:Testing performed by : [address] [address] Blood 02/28/2025 7:26 PM CDT 02/28/2025 7:38 PM CDT Narrative [facility] 02/28/2025 8:13 PM CDT Has the patient had Daratumumab or Isatuximab in the past 6 months?->Unknown Jimmy Mason MD LAB BLOOD BANK TEST ORDERAB LES Final Result Performing Organization Address [facility] Co de Phone Number [address] [place] [employer] [address] * Antibody screen (02/28/2025 7:26 PM CDT) Pathologist [facility] Beatris, indirect, Gel Interpretation Negative [facility] Comment:Testing performed by : [address] [address] Blood 02/28/2025 7:26 PM CDT 02/28/2025 7:38 PM CDT Narrative [facility] 02/28/2025 8:13 PM CDT Has the patient had Daratumumab or Isatuximab in the past 6 months?->Unknown Jimmy Mason MD LAB BLOOD BANK TEST ORDERAB LES Final Result Performing Organization Address [facility] Co de Phone Number [address] [place] [address] * (ABNORMAL) POCT hCG, urine (02/28/2025 6:24 PM CDT) Pathologist [facility] HCG, ur, POC Positive(A) Negative Lot Number [...] was last reviewed 2021. Testing performed by: [facility], [address] [place] [address]., [address] Blood 02/28/2025 6:22 PM CDT 02/28/2025 6:30 PM CDT us Rod Trejo MD LAB BLOOD ORDERABLES Fi nal Result [facility] [address] [facility] [place] [address] * (ABNORMAL) hCG, blood, quantitative [...] last revised on 2023 Testing performed by: [address] [address] Blood 02/28/2025 6:22 PM CDT 02/28/2025 6:30 PM CDT us Crow Espinoza DO LAB BLOOD ORDERABLES Ed ited Result - Final [facility] [address] [facility] Department [place] [address] * (ABNORMAL) Comprehensive metabolic panel (02/28/2025 6:22 PM CDT) Sodium 137 135 - 145 mmol/L Comment:Testing performed by : [address] [address] Potassium, pl 3.7 3.3 - 4.9 mmol/L ANYA Comment:Testing performed by : [address] [address] Chloride 103 97 - 110 mmol/L ANYA Comment:Testing performed by : [address] [address] CO2 25 22 - 32 mmol/L ANYA Comment:Testing performed by : [address] [address] Anion gap 9 2 - 15 mmol/L ANYA Comment:Testing performed by : [address] [address] BUN 15 6 - 25 mg/dL ANYA Comment:Testing performed by : [address] [address] Creatinine 0.50(L) 0.60 - 1.10 mg/dL ANYA Comment:Testing performed by : [address] [address] Glucose 88 70 - 199 mg/dL ANYA [...] was last revised 2022. Testing performed by: [facility], [address] [place] [address]., [address] Calcium 9.1 8.5 - 10.3 mg/dL ANYA Comment:Testing performed by : [address] [address] Bilirubin, total 0.3 0.1 - 1.2 mg/dL ANYA Comment:Testing performed by : [address] [address] Protein, pl 7.4 6.5 - 8.5 g/dL ANYA Comment:Testing performed by : [address] [address] Albumin 4.5 3.5 - 5.0 g/dL ANYA Comment:Testing performed by : [address] [address] Alk phos 62 40 - 130 Units/L ANYA Comment:Testing performed by : [address] [address] ALT 9 7 - 45 Units/L ANYA Comment:Testing performed by : [address] [address] AST 15 10 - 45 Units/L [facility] Comment:Testing performed by : [address] [address] Blood 02/28/2025 6:22 PM CDT 02/28/2025 6:30 PM CDT us Rod Trejo MD LAB BLOOD ORDERABLES Fi nal Result ANYA [address] [facility] Department [place] [address] * (ABNORMAL) Differential, auto (02/28/2025 6:13 PM CDT) Neutrophil abs 6.84(H) 1.50 - 6.50 K/cumm Comment:Testing performed by : [address], [place]., [address] Imm gran abs 0.02 0.00 - 0.10 K/cumm [facility] Comment:Testing performed by : [address], [place]., [address] Lymphocyte abs 1.99 0.80 - 3.30 K/cumm [facility] Comment:Testing performed by : [address], [place]., [address] Monocyte abs 0.71 0.20 - 0.80 K/cumm [facility] Comment:Testing performed by : [address], [place]., [address] Eosinophil abs 0.17 0.00 - 0.50 K/cumm [facility] Comment:Testing performed by : [address], [place]., [address] Basophil abs 0.06 0.00 - 0.10 K/cumm [facility] Comment:Testing performed by : [address] [address] Neutrophil pct 69.9 % [facility] Comment: Interpretive Data Percent cell count reference ranges are not reported, since discordance with absolute values may lead to misinterpretation of CBC data. Current Interpretive Data was last revised on 2018. Testing performed by: [address] [address] Imm gran pct 0.2 % [facility] Comment: Interpretive Data Percent cell count reference ranges are not reported, since discordance with absolute values may lead to misinterpretation of CBC data. Current Interpretive Data was last revised on 2018. Testing performed by: [address] [address] Lymphocyte pct 20.3 % [facility] Comment: Interpretive Data Percent cell count reference ranges are not reported, since discordance with absolute values may lead to misinterpretation of CBC data. Current Interpretive Data was last revised on 2018. Testing performed by: [address] [address] Monocyte pct 7.3 % [facility] Comment: Interpretive Data Percent cell count reference ranges are not reported, since discordance with absolute values may lead to misinterpretation of CBC data. Current Interpretive Data was last revised on 2018. Testing performed by: [address] [address] Eosinophil pct 1.7 % ANYA Comment: Interpretive Data Percent cell count reference ranges are not reported, since discordance with absolute values may lead to misinterpretation of CBC data. Current Interpretive Data was last revised on 2018. Testing performed by: [address] [address] Basophil pct 0.6 % ANYA Comment: Interpretive Data Percent cell count reference ranges are not reported, since discordance with absolute values may lead to misinterpretation of CBC data. Current Interpretive Data was last revised on 2018. Testing performed by: [address] [address] Blood 02/28/2025 6:13 PM CDT 02/28/2025 6:30 PM CDT us Dari LUCIANO LAB BLOOD ORDERABLES F inal Result [facility] [address] [facility] [place] [address] * (ABNORMAL) CBC with auto differential (02/28/2025 6:13 PM CDT) Pathologist [facility] WBC 9.79 3.80 - 9.90 K/cumm Comment:Testing performed by : [address] [address] Hgb 12.1 11.9 - 15.5 g/dL ANYA Comment:Testing performed by : [address] [address] Hct 35.1(L) 35.6 - 45.5 % ANYA Comment:Testing performed by : [address] [address] Plt 249 150 - 400 K/cumm ANYA Comment:Testing performed by : [address] [address] MPV 11.0 9.1 - 12.3 fL ANYA ULRICH Comment:Testing performed by : [address] [address] RBC 3.95 3.90 - 5.20 M/cumm ANY[facility] ULRICH Comment:Testing performed by : [address] [address] MCV 88.9 81.3 - 96.4 fL ANYA Comment:Testing performed by : [address] [address] MCH 30.6 27.1 - 33.3 pg ANYA Comment:Testing performed by : [address] [address] MCHC 34.5 32.3 - 35.7 g/dL ANYA Comment:Testing performed by : [address] [address] RDW CV 11.6 11.1 - 14.9 % ANYA Comment:Testing performed by : [address] [address] RDW SD 37.4 35.7 - 48.1 fL ANYA Comment:Testing performed by : [address] [address] NRBC abs 0.00 0.00 - 0.01 K/cumm ANYA Comment:Testing performed by : [address] [address] Blood Venous blood specimen / Unknown 02/28/2025 6:13 PM CDT 02/28/2025 6:30 PM CDT us Dari LUCIANO LAB BLOOD ORDERABLES F inal Result [facility] [address] [facility] [place] [address] from Last 3 Months Insurance [facility] Care Teams Printer Apprentice Relationship Specialty Start Date End Date Unknown, Notinfile PCP - General 02/28/25
--- OUTSIDE RECORDS SUMMARY | 2025-04-09 01:43 | XMS_ITS | Clinical Summary ---
Author Organization [place] [id number] [facility] Address [address] [place] [address] Care Team Providers Care Extension Course Counselor Name Role Phone Unknown, Notinfile Primary Care Provider Unavail able Allergies No known active allergies Medications No known medications Encounters Date Type Department Care Team Description 04/07/2025 Patient Self-Triage [facility] HealthCare/ Physicians [address] [place] [phone] Mychart, Generic Provider 04/07/2025 Patient Self-Triage [facility] HealthCare/ Physicians [address] [place] [id number] Mychart, Generic Provider 02/28/2025 6:36 PM CDT - 02/28/2025 8:10 PM CDT Emergency [facility] OB Emergency Department [facility] [place] [address] Crow Espinoza, Threatened in first trimester (Primary [...] week 02/28/2025 How often do you attend [facility] or christianity services? More than 4 times per year 02/28/2025 Do you belong to any clubs o r organizations such as religion groups, unions, fraternal or athletic groups, or [...] staff should administer the PHQ-9) 0 02/28/2025 [facility] - Occupational [...] any time in the past 12 m [facility], were you homeless or living in a longterm (including now)? 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 trachomatis Detected(A) Not Detected Comment:Testing performed by : [facility], [address] [place] [address]., [id number] N. gonorrhoeae Not Detected Not Detected ANYA ULRICH Comment: Interpretive Data This assay detects Chlamydia trachomatis and Neisseria gonorrhoeae by nucleic acid amplification testing (NAAT). This assay has been cleared by the [place] Food and Drug administration. The performance characteristics of this test have been verified by the [facility]. The performance characteristics of this test have not been evaluated in individuals less than 14 years of age. Current Interpretive Data last revised 2023. Testing performed by: [facility], [address] [place] [address]., [id number] Endocervical (None) 02/29/20 7:26 PM CDT 02/28/2025 7:38 PM CDT us Jimmy Mason MD LAB MICROBIOLOGY - GENERAL ORDERABLES Final Result ANYA [address] [facility] Department [place] [address] * (ABNORMAL) Vaginitis panel Vaginal (02/28/2025 7:26 PM CDT) Bacterial Vaginosis Detected(A) Not Detected Comment: The BV organism targets of this test can be commensal in women; results should be considered in conjunction with clinical presentation to determine the disease status. Testing performed by: [address] [address] Wen group Not Detected Not Detected ANYA Comment:Testing performed by : [address] [address] Wen glabrata/ krusei Not Detected Not Detected ANYA Comment:Testing performed by : [address] [address] Trichomonas DNA Not Detected Not Detected [facility] Comment:Testing performed by : [address] [address] Vaginal 02/28/2025 7:26 PM CDT 02/28/2025 9:45 PM CDT Narrative ANYA - 02/28/2025 10:45 PM CDT The [employer] Xpert Xpress MVP test detects DNA targets [...] this test have been verified by the [facility]. us Jimmy Mason MD LAB MICROBIOLOGY - GENERAL ORDERABLES Final Result [facility] [address] [facility] Department [place] [address] * ABO/Rh (02/28/2025 7:26 PM CDT) ABO/Rh O Positive Comment:Testing performed by : [address] [address] Blood 02/28/2025 7:26 PM CDT 02/28/2025 7:38 PM CDT Narrative [facility] 02/28/2025 8:13 PM CDT Has the patient had Daratumumab or Isatuximab in the past 6 months?->Unknown Jimmy Mason MD LAB BLOOD BANK TEST ORDERAB LES Final Result Performing Organization Address City/[facility]/ZIP Co de Phone Number [address] [place] [address] * Antibody screen (02/28/2025 7:26 PM CDT) [facility] Beatris, indirect, Gel Interpretation Negative ABSC Comment:Testing performed by : [facility], [address] [place] [address]., [id number] Blood 02/28/2025 7:26 PM CDT 02/28/2025 7:38 PM CDT Narrative [facility] 02/28/2025 8:13 PM CDT Has the patient had Daratumumab or Isatuximab in the past 6 months?->Unknown Result [facility] Jimmy Mason MD LAB BLOOD BANK TEST ORDERAB LES Final Result Performing Organization Address [facility] Co de Phone Number [address] [place] [address] * (ABNORMAL) POCT hCG, urine (02/28/2025 6:24 PM CDT) [facility] HCG, ur, POC Positive(A) Negative Lot Number [id number] QC Backgroud Clear Acceptable QC Control Line Acceptable Urine 02/28/2025 6:24 PM CDT Dari LUCIANO POINT OF CARE TEST ORD ERABLES Final Result * eGFR (02/28/2025 6:22 PM CDT) [facility] eGFR >90 >=60 mL/min/1. 73 m2 Comment: [...] was last reviewed 2021. Testing performed by: [address] [address] Blood 02/28/2025 6:22 PM CDT 02/28/2025 6:30 PM CDT us Rod Trejo MD LAB BLOOD ORDERABLES Fi nal Result [facility] [address] [facility] Department [place] [address] * (ABNORMAL) hCG, blood, quantitative [...] last revised on 2023 Testing performed by: [address] [address] Blood 02/28/2025 6:22 PM CDT 02/28/2025 6:30 PM CDT Crow Oscar Schifano DO LAB BLOOD ORDERABLES Ed ited Result - Final ANYA [address] [facility] Department [place] [address] * (ABNORMAL) Comprehensive metabolic panel (02/28/2025 6:22 PM CDT) Sodium 137 135 - 145 mmol/L Comment:Testing performed by : [address] [address] Potassium, pl 3.7 3.3 - 4.9 mmol/L ANYA Comment:Testing performed by : [address], [place]., [address] Chloride 103 97 - 110 mmol/L ANYA Comment:Testing performed by : [address], [place]., [address] CO2 25 22 - 32 mmol/L ANYA Comment:Testing performed by : [address] [address] Anion gap 9 2 - 15 mmol/L ANYA Comment:Testing performed by : [address] [address] BUN 15 6 - 25 mg/dL ANYA Comment:Testing performed by : [address] [address] Creatinine 0.50(L) 0.60 - 1.10 mg/dL ANYA Comment:Testing performed by : [address] [address] Glucose 88 70 - 199 mg/dL ANYA [...] was last revised 2022. Testing performed by: [address] [address] Calcium 9.1 8.5 - 10.3 mg/dL ANYA Comment:Testing performed by : [address] [address] Bilirubin, total 0.3 0.1 - 1.2 mg/dL ANYA Comment:Testing performed by : [address], [place]., [address] Protein, pl 7.4 6.5 - 8.5 g/dL ANYA Comment:Testing performed by : [address], [place]., [address] Albumin 4.5 3.5 - 5.0 g/dL ANYA Comment:Testing performed by : [address] [address] Alk phos 62 40 - 130 Units/L ANYA Comment:Testing performed by : [address] [address] ALT 9 7 - 45 Units/L ANYA Comment:Testing performed by : [address] [address] AST 15 10 - 45 Units/L ANYA Comment:Testing performed by : [address] [address] Blood 02/28/2025 6:22 PM CDT 02/28/2025 6:30 PM CDT us Rod Trejo MD LAB BLOOD ORDERABLES nal Result ANYA [address] [facility] Department [place] [address] * (ABNORMAL) Differential, auto (02/28/2025 6:13 PM CDT) Neutrophil abs 6.84(H) 1.50 - 6.50 K/cumm Comment:Testing performed by : [address] [address] Imm gran abs 0.02 0.00 - 0.10 K/cumm ANYA Comment:Testing performed by : [address] [address] Lymphocyte abs 1.99 0.80 - 3.30 K/cumm CERNER Comment:Testing performed by : [address] [address] Monocyte abs 0.71 0.20 - 0.80 K/cumm [facility] Comment:Testing performed by : [address], [place]., [address] Eosinophil abs 0.17 0.00 - 0.50 K/cumm [facility] Comment:Testing performed by : [address], [place]., [address] Basophil abs 0.06 0.00 - 0.10 K/cumm [facility] Comment:Testing performed by : [address] [address] Neutrophil pct 69.9 % [facility] Comment: Interpretive Data Percent cell count reference ranges are not reported, since discordance with absolute values may lead to misinterpretation of CBC data. Current Interpretive Data was last revised on 2018. Testing performed by: [address] [address] Imm gran pct 0.2 % [facility] Comment: Interpretive Data Percent cell count reference ranges are not reported, since discordance with absolute values may lead to misinterpretation of CBC data. Current Interpretive Data was last revised on 2018. Testing performed by: [address] [address] Lymphocyte pct 20.3 % [facility] Comment: Interpretive Data Percent cell count reference ranges are not reported, since discordance with absolute values may lead to misinterpretation of CBC data. Current Interpretive Data was last revised on 2018. Testing performed by: [address] [address] Monocyte pct 7.3 % [facility] Comment: Interpretive Data Percent cell count reference ranges are not reported, since discordance with absolute values may lead to misinterpretation of CBC data. Current Interpretive Data was last revised on 2018. Testing performed by: [address] [address] Eosinophil pct 1.7 % [facility] Comment: Interpretive Data Percent cell count reference ranges are not reported, since discordance with absolute values may lead to misinterpretation of CBC data. Current Interpretive Data was last revised on 2018. Testing performed by: [address] [address] Basophil pct 0.6 % ANYA ULRICH Comment: Interpretive Data Percent cell count reference ranges are not reported, since discordance with absolute values may lead to misinterpretation of CBC data. Current Interpretive Data was last revised on 2018. Testing performed by: [address] [address] Blood 02/28/2025 6:13 PM CDT 02/28/2025 6:30 PM CDT us Dari LUCIANO LAB BLOOD ORDERABLES F inal Result ANYA [facility] Department [place] [address] * (ABNORMAL) CBC with auto differential (02/28/2025 6:13 PM CDT) WBC 9.79 3.80 - 9.90 K/cumm Comment:Testing performed by : [address] [address] Hgb 12.1 11.9 - 15.5 g/dL ANYA ULRICH Comment:Testing performed by : [address] [address] Hct 35.1(L) 35.6 - 45.5 % ANYA ULRICH Comment:Testing performed by : [address] [address] Plt 249 150 - 400 K/cumm ANYA ULRICH Comment:Testing performed by : [address] [address] MPV 11.0 9.1 - 12.3 fL ANYA ULRICH Comment:Testing performed by : [address] [address] RBC 3.95 3.90 - 5.20 M/cumm ANYA ULRICH Comment:Testing performed by : [address] [address] MCV 88.9 81.3 - 96.4 fL ANYA ULRICH Comment:Testing performed by : [address] [address] MCH 30.6 27.1 - 33.3 pg ANYA ULRICH Comment:Testing performed by : [address] [address] MCHC 34.5 32.3 - 35.7 g/dL ANYA ULRICH Comment:Testing performed by : [address] [address] RDW CV 11.6 11.1 - 14.9 % ANYA ULRICH Comment:Testing performed by : [address] [address] RDW SD 37.4 35.7 - 48.1 fL ANYA ULRICH Comment:Testing performed by : [address] [address] NRBC abs 0.00 0.00 - 0.01 K/cumm ANYA Comment:Testing performed by : [address] [address] Blood Venous blood specimen / Unknown 02/28/2025 6:13 PM CDT 02/28/2025 6:30 PM CDT Dari LUCIANO LAB BLOOD ORDERABLES F inal Result Performing Organization Address City/State/[facility] Co de Phone Number [facility] [address] [facility] Department [place] [address] from Last 3 Months Insurance Care Teams Extension Course Counselor Relationship Specialty Start Date End Date Unknown, Notinfile PCP - General 02/28/25
--- NOTE | 2025-04-09 01:54 | ED.GENADULT ---
HPI - General Adult General Chief complaint: Unspecified Stated complaint: headache ,cramping, hot flashes- ? Time Seen by Provider: 04/09/25 01:27 Source: patient and family (mother) Mode of arrival: ambulatory Limitations: no limitations History of Present Illness HPI narrative: Patient presents with headache, cramping, and hot flashes. Feels dizzy. She feels sick but has not vomited. Patient visited urgent care for this yesterday. While there, had a positive urine test. No vaginal bleeding or discharge. No dysuria, hematuria, urgency or frequency. Patient has had one previous which was a miscarriage last month. Her beta Hcg had been low (300) then < 13 on repeat assessment but with a slow drop off period. Is not currently taking vitamins. Taking Tylenol. Had been followed for the last through [facility]. LMP 02/23/25. Related Data Allergies Allergy/AdvReac Type Severity Reaction Status Date / Time No Known Allergies Allergy Verified 04/09/25 00:16 Exam Narrative: GENERAL: Well-appearing, well-nourished, and in no acute distress. HEAD: Normocephalic, atraumatic. EYES: Non injected, non icteric ENT: Nares clear, no rhinorrhea or epistaxis. Gross auditory acuity intact. NECK: Supple. No meningismus. CHEST: Speaking in full sentences. No respiratory distress. HEART: Regular rate and rhythm. . ABDOMEN: Soft, nondistended. No rigidity or guarding. Not peritoneal EXTREMITIES: Normal range of motion. No lower extremity edema. SKIN: Warm, dry, no rash. NEURO: No focal deficits. Alert and oriented. Answering questions. Following commands. Normal speech without aphasia or dysarthria. PSYCH: Normal mood and affect. Course Vital Signs Vital signs: Vital Signs Temperature 97.5 F L 04/08/25 22:00 Pulse Rate 94 04/08/25 22:00 Respiratory Rate 16 04/08/25 22:00 Blood Pressure 115/78 04/08/25 22:00 Pulse Oximetry 99 04/08/25 22:00 Oxygen Delivery Room Air 04/08/25 22:00 Temperature 97.5 F L 04/08/25 22:00 Pulse Rate 76 04/09/25 05:29 Respiratory Rate 19 04/09/25 05:29 Blood Pressure 117/84 04/09/25 05:29 Pulse Oximetry 98 04/09/25 05:29 Oxygen Delivery Room Air 04/08/25 22:00 Medical Decision Making MDM Narrative Medical decision making narrative: 19 yo female presents with headache, abdominal cramps, hot flash and dizziness. Seen at urgent care yesterday and had a postiive urine test. Patient notes she recently was told she miscarried. LMP 02/23/25. Had been followed by [facility] [place] when she had some vaginal bleeding and at that time had a BHCG of 300 (low) and then <13 thus felt to represent a miscarriage during early preganncy. In the emergency department they are afebrile with vital signs within normal limits. BHCG 1668 here. Has not had confirmation of an intrauterine thus US to be called in to r/o ectopic. O positive blood type. Viral swab was negative at urgent care yesterday. Will defer repeating. Patient has bacteriuria but sample also appears contaminated and she is asymptomatic (no hematuria, dysuria, urgency or frequency). As per ACOG guidelines, will for reflex to culture. Order is placed and called lab to process. Acetaminophen ordered. Patient reassessed at approximately 5:15 a.m.. She is feeligng better. We discussed the uncertainty of her workup thus far and the need to follow up for repeat BHCG lab draw as well as possible serial ultrasound. Patient can continue to go through [place] where she was seen before. She would prefer elsewhere. Contact/referral given to [facility] today. Advised she call. Instructed she can take APAP and vitamins and given strict ED return precautions which she verifies understanding. . Differential Diagnosis Differential Diagnosis: spectrum of preganncy (early , spectrum of miscarriage, ectopic ) Vital Signs Vital Signs: Vital Signs Temperature 97.5 F L 04/08/25 22:00 Pulse Rate 94 04/08/25 22:00 Respiratory Rate 16 04/08/25 22:00 Blood Pressure 115/78 04/08/25 22:00 Pulse Oximetry 99 04/08/25 22:00 Oxygen Delivery Room Air 04/08/25 22:00 Temperature 97.5 F L 04/08/25 22:00 Pulse Rate 76 04/09/25 05:29 Respiratory Rate 19 04/09/25 05:29 Blood Pressure 117/84 04/09/25 05:29 Pulse Oximetry 98 04/09/25 05:29 Oxygen Delivery Room Air 04/08/25 22:00 Lab Data Lab results reviewed: Yes I reviewed the patient's lab results. 04/09/25 00:26 04/09/25 00:26 Labs: Lab Results 04/09/25 04/09/25 Range/Units 00:26 00:30 WBC 8.9 (4.5-10.0) K/mm3 RBC 4.14 L (4.2-5.4) M/mm3 Hgb 12.5 (12.0-15.0) g/dL Hct 37.0 (37.0-47.0) % MCV 89.4 (80-100) fl MCH 30.2 (26-34) pg MCHC 33.8 (32-36) g/dl RDW 11.8 (11.5-14.5) % Plt Count 255 (150-375) k/mm3 MPV 10.8 H (7.4-10.4) fl Immature Gran % (Auto) 0.2 (0-0.5) % Neut % (Auto) 58.6 (45.5-73.1) % Lymph % (Auto) 28.1 (18.3-44.2) % [place] % (Auto) 7.6 (2.6-8.5) % Eos % (Auto) 4.7 H (0-4.4) % Baso % (Auto) 0.8 (0.2-1.2) % Lymph # (Auto) 2.50 (0.9-3.2) K/mm3 [place] # (Auto) 0.7 H (0.1-0.6) K/mm3 Eos # (Auto) 0.4 H (0-0.3) K/mm3 Baso # (Auto) 0.1 (0.0-0.1) K/mm3 Abs Immat Gran (auto) 0.02 (0.00-0.031) K/mm3 Absolute Neuts (auto) 5.2 (1.3-6.7) K/mm3 Absolute Nucleated RBC 0.000 (0.0-0.012) K/mm3 Nucleated RBC % 0.0 (0.0-0.2) % PT 13.1 (11.1-14.7) Seconds INR 1.0 APTT 30.1 (22.3-36.8) Seconds Sodium 139 (137-145) mmol/L Potassium 3.6 (3.4-5.0) mmol/L Chloride 104 (98-107) mmol/L Carbon Dioxide 25 (22-30) mmol/L Anion Gap 10 (4-12) mmol/L BUN 19 H (7-17) mg/dL Creatinine 0.73 (0.7-1.0) mg/dL Estim Creat Clear Calc 84 ml/min Estimated GFR > 60 (59 - ) Glucose 69 (65-110) mg/dL Calcium 9.6 (8.4-10.2) mg/dL Total Bilirubin 0.3 (0.2-1.3) mg/dL AST 28 (14-36) U/L ALT 21 (6-35) U/L Alkaline Phosphatase 75 (38-126) U/L Total Protein 8.0 (6.3-8.2) g/dL Albumin 4.9 (3.5-5.1) g/dL Lipase 113 (23-300) U/L Beta HCG, Quant 1688.20 mIU/ML Urine Color Yellow (Yellow) Urine Appearance Clear (Clear) Urine pH 8.5 (5.0-9.0) Ur Specific [place] 1.031 (1.001-1.035) Urine Protein Trace (Negative) mg/dL Urine Glucose (UA) Negative (Negative) mg/dL Urine Ketones Trace H (Negative) mg/dL Ur Blood (Man) Negative (Negative) Urine Nitrate Negative (Negative) Urine Bilirubin Negative (Negative) Urine Urobilinogen 1.0 (<2.0) mg/dL Leukocyte Esterase Rfl Negative (Negative) CATA/UL Urine RBC 0-2 (0-2) /hpf Urine WBC 0-5 (0-3) /hpf Ur Squamous Epith Cells Few (Few) /hpf Urine Bacteria 1+ H /hpf Urine Casts 0-2 POC Urine HCG, Qual Negative (Negative) Blood Type O Positive Antibody Screen Negative Screen TNP Baby's Blood Type TNP Baby's BHARATHI Not Reportable Doses of RhIg Required 0 Imaging Data Radiologist's impression: US OB 1st trimester: STat Rad: No intrauterine identified. Ectopic is not excluded at this time. Serial beta hCG values and follow-up ultrasound recommended as clinically indicated. Normal sonographic appearance of the left ovary. The right ovary is not visualized. No incidental findings. Discharge Plan Discharge Clinical Impression: Abnormal urinalysis, of unknown anatomic location Patient Disposition: Home Condition: Stable Instructions: Antibiotic Form, (ED) Additional Instructions: As we discussed, your beta hCG is 1688 on 04/09/25 at 00:30am but your ultrasound did not identify an intrauterine . Given this, ectopic is not excluded. Follow-up with either your Ob Gyne or the OB Gyne listed below by calling their clinic to discuss these findings. They will likely order a repeat beta hCG lab to be done outpatient and, based on this and other elements, a possible repeat ultrasound. They can also follow-up on your urine culture. Return to the emergency department with any new worsening or unmanaged symptoms for example fever greater than 100.4? F, intractable pain not responding to Tylenol/acetaminophen which is safe to take during , intractable nausea or vomiting, or vaginal bleeding saturating 2 maxi pads an hour for 2-3 hours, etc. Patient Language: Malawian Prescriptions: New acetaminophen 650 mg tablet extended release 650 mg PO Q8H PRN (Reason: pain) Qty: 30 0RF Classic 28 mg iron- 800 mcg tablet 1 tablet PO DAILY 30 Days Qty: 30 0RF Follow-up/Referrals: Patrizia,Sabina Dixon NP [Primary Care Provider] - Rudolph Wilcox MD [Physician] - Stand Alone Forms: Work/School Release IP Time of Disposition: 05:24
[2025-04-09] MEDS: ACETAMINOPHEN 325 MG TABLET 650 MG PO (03:33)
[2025-04-09 05:29] VITALS: BP 117/84; PULSE 76; RESP 19; O2SAT 98
== END 2025-04-09 05:30 | disposition home or self-care (01) ==
PROVIDERS: Emergency Medicine; Emergency Provider Student in an Organized Health Care Education/Training Program; PCP Nurse Practitioner
DX: R82.90 Unspecified abnormal findings in urine (principal); O36.80X0 Pregnancy with inconclusive fetal viability, not applicable or unspecified; Z3A.00 Weeks of gestation of pregnancy not specified
CPT/HCPCS: 36415; 76801; 76817; 80053; 81001; 81025; 83690; 84702; 85025; 85461; 85610; 85730; 86850; 86900; 86901; 87086; 99284; A9270

== ENCOUNTER 2025-04-12 14:52 | Outpatient (CLI) | payer OTHER, SELFPAY ==
--- OUTSIDE RECORDS SUMMARY | 2025-04-12 15:31 | XMS_ITS | Clinical Summary ---
Author Organization [place] [id number] Address [address] [place] [address] Care Team Providers Care Packaging Clerk Name Role Phone Unknown, Notinfile Primary Care Provider Unavail able Allergies No known active allergies Medications No known medications Encounters Date Type Department Care Team Description 04/07/2025 Patient Self-Triage [facility] HealthCare/ Physicians [address] [place] [phone] Mychart, Generic Provider 04/07/2025 Patient Self-Triage [facility] HealthCare/ Physicians [address] [place] [phone] Mychart, Generic Provider 02/28/2025 6:36 PM CDT - 02/28/2025 8:10 PM CDT Emergency [facility] OB Emergency Department [facility] [place] [address] Crow Espinoza, Threatened in first trimester (Primary [...] week 02/28/2025 How often do you attend [facility] or episcopalian services? More than 4 times per year 02/28/2025 Do you belong to any clubs o r organizations such as adventist groups, unions, fraternal or athletic groups, or [...] staff should administer the PHQ-9) 0 02/28/2025 [facility] of Occupat ional Health - Occupational Stress [...] any time in the past 12 m [facility], were you homeless or living in a fdc (including now)? 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 trachomatis Detected(A) Not Detected Comment:Testing performed by : [facility], [address] [place] [address]., [address] N. gonorrhoeae Not Detected Not Detected ANYA ULRICH Comment: Interpretive Data This assay detects Chlamydia trachomatis and Neisseria gonorrhoeae by nucleic acid amplification testing (NAAT). This assay has been cleared by the [place] Food and Drug administration. The performance characteristics of this test have been verified by the [facility]. The performance characteristics of this test have not been evaluated in individuals less than 14 years of age. Current Interpretive Data last revised 2023. Testing performed by: [facility], [address] [place] [address]., [id number] Endocervical (None) 02/29/20 7:26 PM CDT 02/28/2025 7:38 PM CDT us Jimmy Mason MD LAB MICROBIOLOGY - GENERAL ORDERABLES Final Result ANYA [address] [facility] Department [place] [address] * (ABNORMAL) Vaginitis panel Vaginal (02/28/2025 7:26 PM CDT) Bacterial Vaginosis Detected(A) Not Detected Comment: The BV organism targets of this test can be commensal in women; results should be considered in conjunction with clinical presentation to determine the disease status. Testing performed by: [address] [address] Wen group Not Detected Not Detected ANYA Comment:Testing performed by : [address] [address] Wen glabrata/ krusei Not Detected Not Detected ANYA Comment:Testing performed by : [address] [address] Trichomonas DNA Not Detected Not Detected [facility] Comment:Testing performed by : [address] [address] Vaginal 02/28/2025 7:26 PM CDT 02/28/2025 9:45 PM CDT Narrative ANYA - 02/28/2025 10:45 PM CDT [employer] Xpert Xpress MVP test detects DNA targets [...] this test have been verified by the [facility]. us Jimmy Mason MD LAB MICROBIOLOGY - GENERAL ORDERABLES Final Result [facility] [address] [facility] Department [place] [address] * ABO/Rh (02/28/2025 7:26 PM CDT) ABO/Rh O Positive Comment:Testing performed by : [address] [address] Blood 02/28/2025 7:26 PM CDT 02/28/2025 7:38 PM CDT Narrative [facility] 02/28/2025 8:13 PM CDT Has the patient had Daratumumab or Isatuximab in the past 6 months?->Unknown Jimmy Mason MD LAB BLOOD BANK TEST ORDERAB LES Final Result Performing Organization Address City/[facility]/ZIP Co de Phone Number [address] [place] [address] * Antibody screen (02/28/2025 7:26 PM CDT) [facility] Beatris, indirect, Gel Interpretation Negative ABSC Comment:Testing performed by : [facility], [address] [place] [address]., [address] Blood 02/28/2025 7:26 PM CDT 02/28/2025 7:38 PM CDT Narrative [facility] 02/28/2025 8:13 PM CDT Has the patient had Daratumumab or Isatuximab in the past 6 months?->Unknown Result [facility] Jimmy Mason MD LAB BLOOD BANK TEST ORDERAB LES Final Result Performing Organization Address [facility] Co de Phone Number [address] [place] [address] * (ABNORMAL) POCT hCG, urine (02/28/2025 6:24 PM CDT) [facility] HCG, ur, POC Positive(A) Negative Lot Number [id number] QC Backgroud Clear Acceptable QC Control Line Acceptable Urine 02/28/2025 6:24 PM CDT Dari LUCIANO POINT OF CARE TEST ORD ERABLES Final Result * eGFR (02/28/2025 6:22 PM CDT) [facility] eGFR >90 >=60 mL/min/1. 73 m2 [...] was last reviewed 2021. Testing performed by: [address] [address] Blood 02/28/2025 6:22 PM CDT 02/28/2025 6:30 PM CDT us Rod Trejo MD LAB BLOOD ORDERABLES Fi nal Result [facility] [address] [facility] Department [place] [address] * (ABNORMAL) hCG, blood, quantitative [...] last revised on 2023 Testing performed by: [address] [address] Blood 02/28/2025 6:22 PM CDT 02/28/2025 6:30 PM CDT Crow Oscar Schifano DO LAB BLOOD ORDERABLES Ed ited Result - Final [facility] [address] [facility] Department [place] [address] * (ABNORMAL) Comprehensive metabolic panel (02/28/2025 6:22 PM CDT) Sodium 137 135 - 145 mmol/L Comment:Testing performed by : [address] [address] Potassium, pl 3.7 3.3 - 4.9 mmol/L ANYA Comment:Testing performed by : [address], [place]., [address] Chloride 103 97 - 110 mmol/L ANYA Comment:Testing performed by : [address], [place]., [address] CO2 25 22 - 32 mmol/L ANYA Comment:Testing performed by : [address] [address] Anion gap 9 2 - 15 mmol/L ANYA Comment:Testing performed by : [address] [address] BUN 15 6 - 25 mg/dL ANYA Comment:Testing performed by : [address] [address] Creatinine 0.50(L) 0.60 - 1.10 mg/dL ANYA Comment:Testing performed by : [address] [address] Glucose 88 70 - 199 mg/dL ANYA [...] was last revised 2022. Testing performed by: [address] [address] Calcium 9.1 8.5 - 10.3 mg/dL ANYA Comment:Testing performed by : [address] [address] Bilirubin, total 0.3 0.1 - 1.2 mg/dL ANYA Comment:Testing performed by : [address], [place]., [address] Protein, pl 7.4 6.5 - 8.5 g/dL ANYA Comment:Testing performed by : [address], [place]., [address] Albumin 4.5 3.5 - 5.0 g/dL ANYA Comment:Testing performed by : [address] [address] Alk phos 62 40 - 130 Units/L ANYA Comment:Testing performed by : [address] [address] ALT 9 7 - 45 Units/L ANYA Comment:Testing performed by : [address] [address] AST 15 10 - 45 Units/L ANYA Comment:Testing performed by : [address] [address] Blood 02/28/2025 6:22 PM CDT 02/28/2025 6:30 PM CDT us Rod Trejo MD LAB BLOOD ORDERABLES nal Result [facility] [address] [facility] Department [place] [address] * (ABNORMAL) Differential, auto (02/28/2025 6:13 PM CDT) Neutrophil abs 6.84(H) 1.50 - 6.50 K/cumm Comment:Testing performed by : [address] [address] Imm gran abs 0.02 0.00 - 0.10 K/cumm ANYA Comment:Testing performed by : [address] [address] Lymphocyte abs 1.99 0.80 - 3.30 K/cumm CERN[facility] Comment:Testing performed by : [address] [address] Monocyte abs 0.71 0.20 - 0.80 K/cumm [facility] Comment:Testing performed by : [address], [place]., [address] Eosinophil abs 0.17 0.00 - 0.50 K/cumm [facility] Comment:Testing performed by : [address], [place]., [address] Basophil abs 0.06 0.00 - 0.10 K/cumm [facility] Comment:Testing performed by : [address] [address] Neutrophil pct 69.9 % [facility] Comment: Interpretive Data Percent cell count reference ranges are not reported, since discordance with absolute values may lead to misinterpretation of CBC data. Current Interpretive Data was last revised on 2018. Testing performed by: [address] [address] Imm gran pct 0.2 % [facility] Comment: Interpretive Data Percent cell count reference ranges are not reported, since discordance with absolute values may lead to misinterpretation of CBC data. Current Interpretive Data was last revised on 2018. Testing performed by: [address] [address] Lymphocyte pct 20.3 % [facility] Comment: Interpretive Data Percent cell count reference ranges are not reported, since discordance with absolute values may lead to misinterpretation of CBC data. Current Interpretive Data was last revised on 2018. Testing performed by: [address] [address] Monocyte pct 7.3 % [facility] Comment: Interpretive Data Percent cell count reference ranges are not reported, since discordance with absolute values may lead to misinterpretation of CBC data. Current Interpretive Data was last revised on 2018. Testing performed by: [address] [address] Eosinophil pct 1.7 % [facility] Comment: Interpretive Data Percent cell count reference ranges are not reported, since discordance with absolute values may lead to misinterpretation of CBC data. Current Interpretive Data was last revised on 2018. Testing performed by: [address] [address] Basophil pct 0.6 % [facility]ICH Comment: Interpretive Data Percent cell count reference ranges are not reported, since discordance with absolute values may lead to misinterpretation of CBC data. Current Interpretive Data was last revised on 2018. Testing performed by: [address] [address] Blood 02/28/2025 6:13 PM CDT 02/28/2025 6:30 PM CDT us Dari LUCIANO LAB BLOOD ORDERABLES F inal Result ANY[facility] Department [place] [address] * (ABNORMAL) CBC with auto differential (02/28/2025 6:13 PM CDT) WBC 9.79 3.80 - 9.90 K/cumm Comment:Testing performed by : [address] [address] Hgb 12.1 11.9 - 15.5 g/dL ANY[facility] ULRICH Comment:Testing performed by : [address] [address] Hct 35.1(L) 35.6 - 45.5 % [facility] ULRICH Comment:Testing performed by : [address] [address] Plt 249 150 - 400 K/cumm ANY[facility] ULRICH Comment:Testing performed by : [address] [address] MPV 11.0 9.1 - 12.3 fL [facility] ULRICH Comment:Testing performed by : [address] [address] RBC 3.95 3.90 - 5.20 M/cumm [facility] ULRICH Comment:Testing performed by : [address] [address] MCV 88.9 81.3 - 96.4 fL [facility] ULRICH Comment:Testing performed by : [address] [address] MCH 30.6 27.1 - 33.3 pg ANY[facility] ULRICH Comment:Testing performed by : [address] [address] MCHC 34.5 32.3 - 35.7 g/dL ANY[facility] ULRICH Comment:Testing performed by : [address] [address] RDW CV 11.6 11.1 - 14.9 % [facility] ULRICH Comment:Testing performed by : [address] [address] RDW SD 37.4 35.7 - 48.1 fL [facility] ULRICH Comment:Testing performed by : [address] [address] NRBC abs 0.00 0.00 - 0.01 K/cumm ANYA Comment:Testing performed by : [address] [address] Blood Venous blood specimen / Unknown 02/28/2025 6:13 PM CDT 02/28/2025 6:30 PM CDT Dari LUCIANO LAB BLOOD ORDERABLES F inal Result Performing Organization Address City/State/[facility] Co de Phone Number [facility] [address] [facility] Department [place] [address] from Last 3 Months Insurance Care Teams Packaging Clerk Relationship Specialty Start Date End Date Unknown, Notinfile PCP - General 02/28/25
--- OUTSIDE RECORDS SUMMARY | 2025-04-12 15:31 | XMS_ITS | Referral Summary ---
Author Organization [facility] [address] [facility] Address [address] [place] [address] Care Team Providers Care Solutions Engineer Name Role Phone Unknown, Notinfile Primary Care Provider Unavail able Encounters Date Type Department Care Team Description 04/07/2025 Patient Self-Triage [facility] HealthCare/ Physicians [address] [place] [id number] Mychart, Generic Provider 04/07/2025 Patient Self-Triage [facility] HealthCare/ Physicians [address] [place] [address] Mychart, Generic Provider 02/28/2025 6:36 PM CDT - 02/28/2025 8:10 PM CDT Emergency [facility] OB Emergency Department [address] [place] [address] Crow Espinoza DO Threatened in first trimester [...] do you attend [facility] or yazidi services? More than 4 times per year 02/28/2025 Do you belong to any clubs o r organizations such as christian groups, unions, fraternal or athletic groups, or [...] staff should administer the PHQ-9) 0 02/28/2025 [facility] - Occupational [...] any time in the past 12 m [facility], were you homeless or living in a senior care (including now)? 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 gonorrhoeae Not Detected Not Detected ANYA ULRICH Comment: Interpretive Data This assay detects Chlamydia trachomatis and Neisseria gonorrhoeae by nucleic acid amplification testing (NAAT). This assay has been cleared by the [place] Food and Drug administration. The performance characteristics of this test have been verified by the [facility]. The performance characteristics of this test have not been evaluated in individuals less than 14 years of age. Current Interpretive Data last revised 2023. Testing performed by: [facility], [address] [place] [address]., [address] Endocervical (None) 02/29/20 7:26 PM CDT 02/28/2025 7:38 PM CDT Jimmy Mason MD LAB MICROBIOLOGY - GENERAL ORDERABLES Final Result Performing Organization Address City/State/[facility] Co de Phone Number ANYA [address] [facility] [employer] [place] [address] * (ABNORMAL) Vaginitis panel Vaginal (02/28/2025 7:26 PM CDT) Bacterial Vaginosis Detected(A) Not Detected Comment: The BV organism targets of this test can be commensal in women; results should be considered in conjunction with clinical presentation to determine the disease status. Testing performed by: [address] [address] Wen group Not Detected Not Detected [facility] Comment:Testing performed by : [address] [address] Wen glabrata/ krusei Not Detected Not Detected [facility] Comment:Testing performed by : [address], [place]., [address] Trichomonas DNA Not Detected Not Detected [facility] Comment:Testing performed by : [address] [address] Vaginal 02/28/2025 7:26 PM CDT 02/28/2025 9:45 PM CDT Narrative [facility] - 02/28/2025 10:45 PM CDT The [employer]ash[employer] Xpert Xpress MVP test detects DNA targets [...] this test have been verified by the [facility]. us Jimmy Mason MD LAB MICROBIOLOGY - GENERAL ORDERABLES Final Result Performing Organization Address City/[facility]/ZIP Co de Phone Number ANYA [address] [facility] [employer] [place] [address] * ABO/Rh (02/28/2025 7:26 PM CDT) ABO/Rh O Positive Comment:Testing performed by : [address] [address] Blood 02/28/2025 7:26 PM CDT 02/28/2025 7:38 PM CDT Narrative [facility] 02/28/2025 8:13 PM CDT Has the patient had Daratumumab or Isatuximab in the past 6 months?->Unknown Jimmy Mason MD LAB BLOOD BANK TEST ORDERAB LES Final Result Performing Organization Address [facility] Co de Phone Number [address] [place] [address] * Antibody screen (02/28/2025 7:26 PM CDT) Pathologist [facility] Beatris, indirect, Gel Interpretation Negative [facility] Comment:Testing performed by : [address] [address] Blood 02/28/2025 7:26 PM CDT 02/28/2025 7:38 PM CDT Narrative [facility] 02/28/2025 8:13 PM CDT Has the patient had Daratumumab or Isatuximab in the past 6 months?->Unknown Jimmy Mason MD LAB BLOOD BANK TEST ORDERAB LES Final Result Performing Organization Address [facility] Co de Phone Number [address] [employer] [place] [address] * (ABNORMAL) POCT hCG, urine (02/28/2025 6:24 PM CDT) Pathologist [facility] HCG, ur, POC Positive(A) Negative Lot Number [...] was last reviewed 2021. Testing performed by: [facility], [address] [place] [address]., [address] Blood 02/28/2025 6:22 PM CDT 02/28/2025 6:30 PM CDT us Rod Trejo MD LAB BLOOD ORDERABLES Fi nal Result [facility] [address] [facility] Department [place] [address] * (ABNORMAL) hCG, blood, quantitative [...] last revised on 2023 Testing performed by: [address] [address] Blood 02/28/2025 6:22 PM CDT 02/28/2025 6:30 PM CDT us Crow Espinoza DO LAB BLOOD ORDERABLES Ed ited Result - Final [facility] [address] [facility] Department [place] [address] * (ABNORMAL) Comprehensive metabolic panel (02/28/2025 6:22 PM CDT) Sodium 137 135 - 145 mmol/L Comment:Testing performed by : [address] [address] Potassium, pl 3.7 3.3 - 4.9 mmol/L ANYA Comment:Testing performed by : [address] [address] Chloride 103 97 - 110 mmol/L ANYA Comment:Testing performed by : [address] [address] CO2 25 22 - 32 mmol/L [facility] Comment:Testing performed by : [address] [address] Anion gap 9 2 - 15 mmol/L [facility] Comment:Testing performed by : [address] [address] BUN 15 6 - 25 mg/dL [facility] Comment:Testing performed by : [address] [address] Creatinine 0.50(L) 0.60 - 1.10 mg/dL ANYA Comment:Testing performed by : [address] [address] Glucose 88 70 - 199 mg/dL ANYA [...] was last revised 2022. Testing performed by: [facility], [address] [place] [address]., [address] Calcium 9.1 8.5 - 10.3 mg/dL ANYA Comment:Testing performed by : [address] [address] Bilirubin, total 0.3 0.1 - 1.2 mg/dL ANYA Comment:Testing performed by : [address] [address] Protein, pl 7.4 6.5 - 8.5 g/dL [facility] Comment:Testing performed by : [address] [address] Albumin 4.5 3.5 - 5.0 g/dL [facility] Comment:Testing performed by : [address] [address] Alk phos 62 40 - 130 Units/L [facility]A Comment:Testing performed by : [address] [address] ALT 9 7 - 45 Units/L [facility] Comment:Testing performed by : [address] [address] AST 15 10 - 45 Units/L [facility] Comment:Testing performed by : [address] [address] Blood 02/28/2025 6:22 PM CDT 02/28/2025 6:30 PM CDT us Rod Trejo MD LAB BLOOD ORDERABLES Fi nal Result [facility] [address] [facility] Department [place] [address] * (ABNORMAL) Differential, auto (02/28/2025 6:13 PM CDT) Neutrophil abs 6.84(H) 1.50 - 6.50 K/cumm Comment:Testing performed by : [address], [place]., [address] Imm gran abs 0.02 0.00 - 0.10 K/cumm [facility] Comment:Testing performed by : [address], [place]., [address] Lymphocyte abs 1.99 0.80 - 3.30 K/cumm [facility] Comment:Testing performed by : [address], [place]., [address] Monocyte abs 0.71 0.20 - 0.80 K/cumm [facility] Comment:Testing performed by : [address], [place]., [address] Eosinophil abs 0.17 0.00 - 0.50 K/cumm [facility] Comment:Testing performed by : [address], [place]., [address] Basophil abs 0.06 0.00 - 0.10 K/cumm [facility] Comment:Testing performed by : [address] [address] Neutrophil pct 69.9 % [facility] Comment: Interpretive Data Percent cell count reference ranges are not reported, since discordance with absolute values may lead to misinterpretation of CBC data. Current Interpretive Data was last revised on 2018. Testing performed by: [address] [address] Imm gran pct 0.2 % [facility] Comment: Interpretive Data Percent cell count reference ranges are not reported, since discordance with absolute values may lead to misinterpretation of CBC data. Current Interpretive Data was last revised on 2018. Testing performed by: [address] [address] Lymphocyte pct 20.3 % [facility] Comment: Interpretive Data Percent cell count reference ranges are not reported, since discordance with absolute values may lead to misinterpretation of CBC data. Current Interpretive Data was last revised on 2018. Testing performed by: [address] [address] Monocyte pct 7.3 % [facility] Comment: Interpretive Data Percent cell count reference ranges are not reported, since discordance with absolute values may lead to misinterpretation of CBC data. Current Interpretive Data was last revised on 2018. Testing performed by: [address] [address] Eosinophil pct 1.7 % ANYA Comment: Interpretive Data Percent cell count reference ranges are not reported, since discordance with absolute values may lead to misinterpretation of CBC data. Current Interpretive Data was last revised on 2018. Testing performed by: [address] [address] Basophil pct 0.6 % ANYA Comment: Interpretive Data Percent cell count reference ranges are not reported, since discordance with absolute values may lead to misinterpretation of CBC data. Current Interpretive Data was last revised on 2018. Testing performed by: [address] [address] Blood 02/28/2025 6:13 PM CDT 02/28/2025 6:30 PM CDT us Dari LUCIANO LAB BLOOD ORDERABLES F inal Result [facility] [address] [facility] Department [place] [address] * (ABNORMAL) CBC with auto differential (02/28/2025 6:13 PM CDT) Pathologist [facility] WBC 9.79 3.80 - 9.90 K/cumm Comment:Testing performed by : [address] [address] Hgb 12.1 11.9 - 15.5 g/dL ANYA Comment:Testing performed by : [address] [address] Hct 35.1(L) 35.6 - 45.5 % ANYA Comment:Testing performed by : [address] [address] Plt 249 150 - 400 K/cumm ANYA Comment:Testing performed by : [address] [address] MPV 11.0 9.1 - 12.3 fL [facility] ULRICH Comment:Testing performed by : [address] [address] RBC 3.95 3.90 - 5.20 M/cumm [facility] ULRICH Comment:Testing performed by : [address] [address] MCV 88.9 81.3 - 96.4 fL ANYA Comment:Testing performed by : [address] [address] MCH 30.6 27.1 - 33.3 pg ANYA Comment:Testing performed by : [address] [address] MCHC 34.5 32.3 - 35.7 g/dL ANYA Comment:Testing performed by : [address] [address] RDW CV 11.6 11.1 - 14.9 % ANYA Comment:Testing performed by : [address] [address] RDW SD 37.4 35.7 - 48.1 fL [facility]A Comment:Testing performed by : [address] [address] NRBC abs 0.00 0.00 - 0.01 K/cumm ANYA Comment:Testing performed by : [address] [address] Blood Venous blood specimen / Unknown 02/28/2025 6:13 PM CDT 02/28/2025 6:30 PM CDT us Dari LUCIANO LAB BLOOD ORDERABLES F inal Result [facility] [address] [facility] Department [place] [address] from Last 3 Months Insurance [facility] Care Teams Solutions Engineer Relationship Specialty Start Date End Date Unknown, Notinfile PCP - General 02/28/25
== END 2025-04-12 14:53 | disposition home or self-care (01) ==
PROVIDERS: PCP Nurse Practitioner; Visit Provider Obstetrics & Gynecology
DX: O02.1 Missed abortion (principal)
CPT/HCPCS: 36415; 84702

== ENCOUNTER 2025-04-24 17:42 | Emergency (ER) | payer OTHER, SELFPAY ==
[2025-04-24 17:47] VITALS: BP 100/54; PULSE 81; RESP 16; TEMP 36.7; O2SAT 100
--- NOTE | 2025-04-24 18:27 | ED.URI ---
HPI - URI/Sore Throat General Chief Complaint: Upper Respiratory Infection Stated Complaint: headache/sinus congestion Time Seen by Provider: 04/24/25 18:10 Source: patient and RN notes reviewed Mode of arrival: ambulatory Limitations: no limitations History of Present Illness HPI Narrative: 19-year-old female presents Express Care complaining of upper respiratory symptoms for approximately 1 week. Patient reports cough, sinus pressure, congestion, mucopurulent nasal discharge, and body aches daughter progressively gotten worse over the last week. She reports she is not feeling much better. Patient has not tried anything [id number]. Patient denies any chest pain, shortness of breath, ear pain, nausea, vomiting, diarrhea, or any other symptoms. Patient denies any significant past medical history. Related Data Allergies Allergy/AdvReac Type Severity Reaction Status Date / Time No Known Allergies Allergy Verified 04/24/25 18:06 Review of Systems Review of Systems: CONSTITUTIONAL: Denies fever, chills, body aches, or sweats. EYES: Denies visual changes, redness, or discharge. ENT: Positive for congestion. Negative for rhinorrhea, sore throat, or otalgia. CARDIOVASCULAR: Denies chest pain, palpitations, or edema. RESPIRATORY: Positive for cough. Negative for dyspnea and wheezing. GASTROINTESTINAL: Denies abdominal pain, nausea, vomiting, or diarrhea. GENITOURINARY: Denies dysuria or hematuria. SKIN: Denies rash or itching. MUSCULOSKELETAL: Denies back pain, joint pain, or myalgia. NEUROLOGIC: Denies headache, numbness, or weakness. PSYCHIATRIC: Denies anxiety or depression. All other systems reviewed are negative, except as documented in HPI. PMFSH Comments At the time of my signature, I reviewed and agree with the nursing past medical, surgical, social, and family history. There is no relevant family history pertinent to the patient complaint. Exam Narrative: GENERAL: This is a well-nourished, well-developed adult, in no apparent distress. They are non ill-appearing, nontoxic appearing. HEAD: normocephalic, atraumatic. EYES: Sclera clear/white. Vision is grossly intact. Conjunctiva normal bilaterally. Extraocular movements intact. EARS: External ears normal, auditory canals clear and without drainage, TMs without erythema or perforation. Hearing grossly intact. NOSE: External nose normal with no obvious nasal discharge, nasal turbinates erythematous with exudate present. Frontal sinus tenderness to palpation. THROAT: Mucous membranes moist, posterior pharynx without redness swelling, without exudate. Uvula is midline. Postnasal drip present. NECK: Neck supple, non-tender without lymphadenopathy, masses or thyromegaly. CARDIOVASCULAR: Regular rate and rhythm without murmurs, gallops, or rubs. RESPIRATORY: Clear to auscultation. Breath sounds equal bilaterally. No wheezes, rales, or rhonchi. SKIN: warm, Dry, intact with no suspicious lesions or rash, good texture and turgor. NEURO: awake, alert, and oriented to person, place and time. There were no obvious focal neurologic abnormalities. EXTREMITIES: No joint tenderness, effusion, or edema noted. BACK: Nontender without deformity. Course Course Emergency Course: Portions of this record may have been created with voice recognition software Level of Care: Express Care Visit Vital Signs Vital signs: Vital Signs Temperature 98.1 F 04/24/25 17:47 Pulse Rate 81 04/24/25 17:47 Respiratory Rate 16 04/24/25 17:47 Blood Pressure 100/54 L 04/24/25 17:47 Pulse Oximetry 100 04/24/25 17:47 Oxygen Delivery Room Air 04/24/25 17:47 Temperature 98.1 F 04/24/25 17:47 Pulse Rate 81 04/24/25 17:47 Respiratory Rate 16 04/24/25 17:47 Blood Pressure 100/54 L 04/24/25 17:47 Pulse Oximetry 100 04/24/25 17:47 Oxygen Delivery Room Air 04/24/25 17:47 MDM - URI/Sore Throat MDM Narrative Medical decision making narrative: Given patient's length of symptoms is likely she developed a bacterial sinusitis. Will treat empirically with Augmentin. Discussed physical exam findings. Advised supportive measures and signs/symptoms to go to the ER. Pt is appropriate for outpt treatment and f/u. Differential Diagnosis Differential diagnosis: Likely upper respiratory infection, sinusitis, viral infection and pharyngitis Discharge Plan Discharge Clinical Impression: Sinusitis Qualifiers: Sinusitis location: unspecified location Chronicity: acute Recurrence: non-recurrent Qualified Code(s): J01.90 - Acute sinusitis, unspecified Patient Disposition: Home Condition: Stable Instructions: Antibiotic Form, Sinusitis (ED) Additional Instructions: Take the antibiotics as directed and complete the course even if you start to feel better. You may use a Neti pot saline rinse 3 times a day with lukewarm distilled water Continue to take Tylenol or Motrin for pain. Use a humidifier or vaporizer at night. Drink plenty of water. 8-10 glasses per day. Use flonase 2 times per day for 5 days then as needed Take mucinex 2 times per day and be sure to take with 8oz of water. Follow up with Primary provider in 3-5 days Please go to the ER if he develops any difficulty breathing, worsening symptoms, or any other concerns Patient Language: Portuguese Prescriptions: New amoxicillin-pot clavulanate 875-125 mg tablet 1 tablet PO Q12H 7 Days Qty: 14 0RF No Action acetaminophen 650 mg tablet extended release 650 mg PO Q8H PRN (Reason: pain) Qty: 30 0RF Classic 28 mg iron- 800 mcg tablet 1 tablet PO DAILY 30 Days Qty: 30 0RF Follow-up/Referrals: Patrizia,Sabina Dixon NP [Primary Care Provider] - Stand Alone Forms: Work/School Release IP Time of Disposition: 18:20
== END 2025-04-24 18:25 | disposition home or self-care (01) ==
PROVIDERS: PCP Nurse Practitioner
DX: J01.90 Acute sinusitis, unspecified (principal)
CPT/HCPCS: 99213; G0463